=== PATIENT | female | born 2000 | race Caucasian/White ===

== ENCOUNTER 2025-05-16 02:02 | Inpatient (IN) | payer OTHER, SELFPAY ==
[2025-05-16] VITALS (132 sets, daily range): BP systolic 84–149; BP diastolic 38–88; PULSE 47–127; RESP 14–18; TEMP 36.6–36.8; O2SAT 84–100; BMI 26.9
--- OUTSIDE RECORDS SUMMARY | 2025-05-16 05:44 | XMS_ITS | Clinical Summary ---
Author Organization [facility] Address [address] [place] [address] Phone Care Team Providers Care Utility Operator Name Role Phone Provider, Unknown Primary Care Provider Unavaila ble Allergies No known active allergies Medications * This document contains information received from the source organization and may not represent a complete record from that organization. metoclopramide (REGLAN) 10 MG Tablet Take 1 Tablet by mouth 4 times daily as needed for Nausea - 1st line. 10 Tablet 10/16/2024 Active Active Problems Problem Noted Date Diagnosed Date Opiate withdrawal 10/14/2024 at early stage, unspecified trimester 10/14/2024 Comments Yes Social History Tobacco Use Types Packs/Day Years Used Date Smoking Tobacco: Never Tobacco Cessation:Counseling Given: Not Answered Alcohol Use Standard Drinks/Week Comments Never 0 (1 standard drink = 0.6 oz pur e alcohol) [facility] Utilities Answer Date Recorded In the past 12 months has [employer], gas, oil, or water [employer] threatened to shut off services in your home? Patient declined 10/14/2024 Social Connection and Isolation Panel Answer Date Recorded In a typical week, how many times do you talk on the phone with family, friends, or neighbors? Patient declined 10/14/2024 How often do you get togethe r with friends or relatives? Patient declined 10/14/2024 How often do you attend yarsanism or scientology serv ices? Patient declined 10/14/2024 Do you belong to any clubs o r organizations such as yarsanism groups, unions, fraternal or athletic groups, or school groups? Patient declined 10/14/2024 How often do you attend meet ings of the clubs or organizations you belong to? Patient declined 10/14/2024 Are you , , di vorced, , never , or living with a partner? Patient declined 10/14/2024 AUDIT-C Answer Date Recorded Q1: How often do you have a drink containing alc ohol? Patient declined 10/14/2024 Q2: How many drinks containi ng alcohol do you have on a typical day when you are drinking? Patient declined 10/14/2024 Q3: How often do you have si x or more drinks on one occasion? Patient declined 10/14/2024 Overall Financial Resource Strain (CARDIA) Answe r Date Recorded How hard is it for you to pa y for the very basics like food, housing, medical care, and heating? Patient declined 10/14/2024 [facility] - Occupational Stress Questionnaire Answer Date Recorded Do you feel stress - tense, restless, nervous, or anxious, or unable to sleep at night because your mind is troubled all the time - these days? Patient declined 10/14/2024 Exercise Vital Sign Answer Date Recorde d On average, how many days pe r week do you engage in moderate to strenuous exercise (like a brisk walk)? Patient declined On average, how many minutes do you engage in exercise at this level? Patient declined 10/14/2024 Hunger Vital Sign Answer Date Recorded Within the past 12 months, y ou worried that your food would run out before you got the money to buy more. Patient declined Within the past 12 months, t he food you bought just didn't last and you didn't have money to get more. Patient declined PRAPARE - Transportation Answer Date Re corded In the past 12 months, has l ack of transportation kept you from medical appointments or from getting medications? Patient declined 10/14/2024 In the past 12 months, has l ack of transportation kept you from meetings, work, or from getting things needed for daily living? Patient declined 10/14/2024 Housing Stability Vital Sign Answer Ruben e Recorded In the last 12 months, was t here a time when you were not able to pay the mortgage or rent on time? Patient declined 10/14/19 25 In the past 12 months, how m any times have you moved where you were living? 1 10/14/2024 At any time in the past 12 m [facility], were you homeless or living in a chcf (including now)? Patient declined 10/14/2024 Comments Yes Sex and Gender Information Value Date Recorded Sex Assigned at Not on file Legal Sex Female 11:11 PM BULLDOZER/LOADER/COMPACTOR/SCRAPER Gender Identity Not on file Sexual Orientation Not on file Last Filed Vital Signs Vital Sign Reading Time Taken Comments Blood Pressure 134/94 10/16/2024 2:00 AM BULLDOZER/LOADER/COMPACTOR/SCRAPER Pulse 83 10/16/2024 2:00 AM BULLDOZER/LOADER/COMPACTOR/SCRAPER Temperature 37.2 C (98.9 F) 10/16/2024 1:23 AM BULLDOZER/LOADER/COMPACTOR/SCRAPER Respiratory Rate 22 10/16/2024 1:23 AM BULLDOZER/LOADER/COMPACTOR/SCRAPER Oxygen Saturation 100% 10/16/2024 2:00 AM BULLDOZER/LOADER/COMPACTOR/SCRAPER Inhaled Oxygen Concentration - - Weight 95.3 kg (210 lb) 10/16/2024 1:23 AM BULLDOZER/LOADER/COMPACTOR/SCRAPER Height 182.9 cm (6') 10/16/2024 1:23 AM BULLDOZER/LOADER/COMPACTOR/SCRAPER Body Mass Index 28.48 10/16/2024 1:23 AM BULLDOZER/LOADER/COMPACTOR/SCRAPER Plan of Treatment Health Maintenance Due Date Last Done Comments Hepatitis C Virus (HCV) Screening 2002 Meningococcal B Immunization (2 of 2 - Bexsero SCDM 2-dose series) 07/09/2019 01/07/2019 Pap Smear 2023 SARS-COV-2 Immunization ( season) 2024 06/30/2021, 05/25/2021 Influenza Immunization (#1) 2025 11/0 10/2022, 06/27/2016, 08/19/2015 Respiratory Syncytial Virus (RSV) Immunization (Adult) (1 - 1-dose 75+ series) 2077 Hepatitis B Immunization Completed 003, 01/06/2003, 2002 Pneumococcal Immunization Combined Aged Out 06/19/2003, 03/28/2003, 01/06/2003 No longer eligible based on patient's age to complete this topic Hepatitis A Immunization Discontinued 06/08/2007, 06/1 01/2006 Measles Mumps Rubella (MMR) Immunization Discontinued 06/08/2007, 06/19/2003 Polio (IPV) Immunization Discontinued 007, 06/19/2003, 03/28/2003, Additional history exists Varicella Immunization Discontinued 06/08/2007, 2002 Human Papillomavirus (HPV) Immunization Completed 03/28/2016, 08/19/2015, 06/16/2015 Meningococcal Immunization (ACWY) Completed 01/07/2019, 06/16/2015 DTaP/Tdap/Td Immunization Discontinued 2022, 03/04/2014, 06/08/2007, Additional history exists TdaP Immunization Completed 09/01/2023, 03/04/2014 Rotavirus Immunization Aged Out No lo nger eligible based on patient's age to complete this topic Insurance [place]ICAID [place] Advance Directives * Full Code (Latest Code Status on File) Date Activated Date Inactivated Comments 10/14/2024 10:29 PM CPR-Full Beena tment: FULL ARREST: Attempt Resuscitation/CPR wit intubation and mechanical ventilation. PRE-ARREST: Use entire range of life support measures to stabilize the patient. Care Teams Utility Operator Relationship Specialty Start Date End Date Provider, Unknown UNKNOWN PCP - General 06/09/24
--- OUTSIDE RECORDS SUMMARY | 2025-05-16 05:44 | XMS_ITS | Clinical Summary ---
Author Organization [facility] Address [address] [place] [address] Care Team Providers Care Pharmaceutical Specialty Representative Name Role Phone Jana Navarro MD Primary Care Provider [phone] Allergies No known active allergies Medications ondansetron ODT (ZOFRAN-ODT) 4 mg disintegrating tablet Dissolve 1 tablet oral every 4 hours as needed for nausea or vomiting. 15 tablet 12/21/19 21 Active PNV #[id number] acid-dha 35 mg iron-5 mg iron-1 mg capsule Take 1 capsule by mouth daily Active benzocaine-menthoL (DERMOPLAST) 20-0.5 % aerosolIndications :Minor Skin Wound Pain Apply 1 Application (1 spray total) topically as needed for other (perianal area for pain) 1 g 1 10/06/19 24 Active ibuprofen (ADVIL,MOTRIN) 600 mg tabletIndications: Cramps Take 1 tablet (600 mg total) by mouth every 6 (six) hours as needed for pain 30 tablet 1 10/06/19 24 Active Active Problems Problem Noted Date Diagnosed Date with 38 completed weeks gestation 01/2024 Encounters Date Type Department Care Team Description 03/27/2025 8:23 PM CDT - 03/27/2025 11:32 PM CDT Emergency [facility] Emergency Department [address] [place] [id number] Spotting during in third trimester (Primary Dx) Discharge Disposition: Discharge to home or self care from Last 3 Months Immunizations Immunization Administration Dates Next Due Influenza, Unspecified 08/02/2023 Social History Tobacco Use Types Packs/Day Years Used Date Smoking Tobacco: Former Vaping 2 019 - 07/2023 Passive Smoke Exposure: Never Smokeless Tobacco: Never Tobacco Cessation:Counseling Given: Yes Alcohol Use Standard Drinks/Week Comments Not Currently 0 (1 standard drink = 0.6 oz pur e alcohol) [facility] Utilities Answer Date Recorded In the past 12 months has e [employer], [employer], oil, or water [employer] threatened to shut off services in your home? No 10/07/2023 Humiliation, Afraid, Rape, and Kick questionnair e Answer Date Recorded Within the last year, have y ou been afraid of your partner or ex-partner? No 10/07/2023 Within the last year, have y ou been humiliated or emotionally abused in other ways by your partner or ex-partner? No Within the last year, have y ou been kicked, hit, slapped, or otherwise physically hurt by your partner or ex-partner? No 10/07/2023 Within the last year, have y ou been raped or forced to have any kind of sexual activity by your partner or ex-partner? No 10/07/2023 Social Connection and Isolation Panel Answer Date Recorded In a typical week, how many times do you talk on the phone with family, friends, or neighbors? More than three times a week 10/07/2023 How often do you get togethe r with friends or relatives? More than three times a week 10/07/2023 How often do you attend [facility] or gnosticist services? 1 to 4 times per year 10/07/2023 Do you belong to any clubs o r organizations such as latter-day groups, unions, fraternal or athletic groups, or school groups? No 10/07/2023 How often do you attend meet ings of the clubs or organizations you belong to? Never 10/07/2023 Are you , , di vorced, , never , or living with a partner? Living with partner 10/07/2023 AUDIT-C Answer Date Recorded Q1: How often do you have a drink containing alcohol? Never 10/07/2023 Q2: How many drinks containi ng alcohol do you have on a typical day when you are drinking? Patient does not drink Q3: How often do you have si x or more drinks on one occasion? Never 10/07/2023 Overall Financial Resource Strain (CARDIA) Answe r Date Recorded How hard is it for you to pa y for the very basics like food, housing, medical care, and heating? Not hard at all 10/07/2023 PHQ-2 Answer Date Recorded PHQ-2 Total Score 1 10/07/2023 [facility] - Occupational Stress Questionnaire Answer Date Recorded Do you feel stress - tense, restless, nervous, or anxious, or unable to sleep at night because your mind is troubled all the time - these days? Only a little 10/07/2023 Exercise Vital Sign Answer Date Recorde d On average, how many days pe r week do you engage in moderate to strenuous exercise (like a brisk walk)? 7 days 10/07/2023 On average, how many minutes do you engage in exercise at this level? 30 min 10/07/2023 Hunger Vital Sign Answer Date Recorded Within the past 12 months, y ou worried that your food would run out before you got the money to buy more. Sometimes true Within the past 12 months, t he food you bought just didn't last and you didn't have money to get more. Never true 03/2024 PRAPARE - Transportation Answer Date Re corded In the past 12 months, has l ack of transportation kept you from medical appointments or from getting medications? No 03/2024 In the past 12 months, has l ack of transportation kept you from meetings, work, or from getting things needed for daily living? No 10/07/2023 Housing Stability Vital Sign Answer Ruben e Recorded In the last 12 months, was t here a time when you were not able to pay the mortgage or rent on time? No 10/07/2023 In the last 12 months, how many places have you lived? 1 10/07/2023 In the last 12 months, was t here a time when you did not have a steady place to sleep or slept in a half-way (including now)? No 10/07/2023 [place] Depression Scale Answer Date Recorded [place] Depression Scale Total 4 10/07/2023 The thought of harming myself has occurred to me . Never 10/07/2023 Personal Safety Answer Date Recorded Have you ever been in or are you currently in a harmful physical or emotional relationship or is someone making you feel afraid or unsafe? Denies 03/27/2025 Comments No Sex and Gender Information Value Date Recorded Sex Assigned at Not on file Legal Sex Female 9:11 PM CDT Gender Identity Not on file Sexual Orientation Not on file Obstetrics History Para Term AB IAB SAB Ectopic Multiple Livin g Live Births 2 1 1 1 1 0 1 1 Date Outcome GA Total Labor Labor/2nd/3rd Weight Sex Type Anes PTL Carin A1 A5 Name Clin 2017 SAB 2023 Term 38w 2d 0h 24m 0h 12m/0h 05m/0h 07m 2.562 kg (5 lb 10.4 oz) M Vagina l Epidur al N Livin g 8 9 Evangelista schaeffer, Jesus escobedo MD Complications:None Delivery Location:This [facility] ([facility] Last Filed Vital Signs Vital Sign Reading Time Taken Comments Blood Pressure 127/86 03/27/2025 9:00 PM CDT Pulse 92 03/27/2025 9:00 PM CDT Temperature 36.2 C (97.2 F) 03/27/2025 8:25 PM CDT Respiratory Rate 18 03/27/2025 8:25 PM CDT Oxygen Saturation 96% 03/27/2025 9:00 PM CDT Inhaled Oxygen Concentration - - Weight 82.6 kg (182 lb) 03/27/2025 8:59 PM CDT Height 182.9 cm (6') 03/27/2025 8:59 PM CDT Body Mass Index 24.68 03/27/2025 8:59 PM CDT Plan of Treatment Health Maintenance Due Date Last Done Comments Cervical Cancer Screening 2002 Hepatitis C Screening 2002 Meningococcal B Vaccine (2 o f 2 - Bexsero SCDM 2-dose series) 07/09/2019 01/07/2019 Regular Well Visit/Exam 18-64 2020 Chlamydia and Gonorrhea (GC/ CT) Screening 09/01/2021 09/01/2020 Covid-19 Vaccine (3 2023-2 5 season) 2024 06/30/2021, 05/25/2021 Depression Screening 10/07/2024 10/07/2023, 10/05/19 Influenza Vaccine (#1) 2025 3, 06/27/2016, 08/19/2015 DTaP/Tdap/Td Vaccine (8 - Td or Tdap) 09/01/2033 09/01/2023, 03/04/2014, 06/08/2007, Additional history exists Hepatitis B Screening Completed 06/19/2003 , 01/06/2003, 2002 Pneumococcal vaccine <65 Completed 003, 03/28/2003, 01/06/2003 Varicella Vaccines Completed 06/08/2007, 06/19/2003 HPV Vaccines Completed 03/28/2016, 08/02, 06/16/2015 Procedures Procedure Name Priority Date/Time Associated Diagnosis Comments N. GONORRHOEAE/C. TRACHOMATIS AMPLIFICATION STAT 09/01/2020 11:54 AM ENGINE REPAIRER PRODUCTION from Last 3 Months or Most Recently Relevant to Health Maintenance Results * (ABNORMAL) N. gonorrhoeae/C. trachomatis Amplification Urine (09/01/2020 11:54 AM ENGINE REPAIRER PRODUCTION) C. trachomatis Detected( A) Not detected PATRICIA VAZ ([place]ILLIAM) Comment:Testing performed by : [facility], [address] [place] [address]., [id number] N. gonorrhoeae Detected( A) Not detected PATRICIA VAZ (WILLIAM) Comment: Testing performed by the [facility]. This assay detects Chlamydia trachomatis and Neisseria gonorrhoeae by nucleic acid amplification testing (NAAT). This test is approved by the [place] Food and Drug Administration and the performance characteristics have been verified by the laboratory. The performance characteristics of this test have not been evaluated in women or individuals less than 16 years of age. Testing performed by: [facility], [address] [place] [address]., [id number] Urine (None) 09/01/2020 11:5 4 AM ENGINE REPAIRER PRODUCTION 09/01/2020 2:30 PM ENGINE REPAIRER PRODUCTION Linda Martínez NP LAB MICROBIOLOGY - GENERAL ORDERABLES Final Result [facility] ([place]) [facility] Department of [place] [phone] from Last 3 Months or Most Recently Relevant to Health Maintenance Insurance [facility] ANTH ACCESS [facility] Advance Directives For more information, please contact: [phone] * Full Code (Latest Code Status on File) Date Activated Date Inactivated Comments 10/06/2023 12:27 AM 10/07/2023 3:57 PM * Full Code Date Activated Date Inactivated Comments 10/05/2023 6:18 AM 10/06/2023 12:27 AM Full CPR in c ase of cardiopulmonary arrest Care Teams Pharmaceutical Specialty Representative Relationship Specialty Start Date End Date Jana Navarro MD [address] [place] [address] PCP - General 12/20/20
--- OUTSIDE RECORDS SUMMARY | 2025-05-16 05:44 | XMS_ITS | Patient Health Record ---
Author Organization [facility] Address [address] [place] [address] Care Team Providers Care Inspector Boiler Name Role Phone Joe Ayala Primary Care Provider Reason For Referral No Information Encounters Encounter Location Date Provider Diagnosis [address] [place] [address] 04/15/2025 Joe Ayala Plan Of Treatment No Information Insurance Providers Payer Name Payer Address Payer Phone Subscriber Number Group Number Insured Name Patient Relationship to Insured Coverage Start Date Coverage End Date [address] [id number] Self - patient is the insured 5
--- NOTE | 2025-05-16 05:50 | LDADM ---
This patient, Margaret Way, was admitted to Labor/Delivery/Recovery 106 on 05/16/25 at 02:02. Plans for labor, pain management and were discussed with patient. Patient/family oriented to hospital policies and general routines including ID bracelet, bed and alarms, visiting hours, pain management, procedures, bathroom and other care routines, personal items, smoking policy, room service/diet and guest tray routines, security routines, and visiting hours. Patient/Family are encouraged to report perceived risks to care and to ask questions if they do not understand what they are told or what they should do. See OBIX for further documentation.
[2025-05-16 06:00] LABS: Hematocrit 31.9 % (37.0-47.0); Hemoglobin 10.0 g/dL (12.0-15.0); Immature Granulocyte Percent A 0.7 % (0-0.5); Lymphocytes Absolute Auto 2.88 K/mm3 (0.9-3.2); Mean Corpuscular HGB Conc 31.3 g/dl (32-36); Mean Corpuscular Hemoglobin 24.8 pg (26-34); Mean Corpuscular Volume 79.2 fl (80-100); Nucleated Red Blood Cells Absolute Auto 0.000 K/mm3 (0.0-0.012); Nucleated Red Blood Cells Perc 0.0 % (0.0-0.2); Platelet Count Result 242 k/mm3 (150-375); Red Blood Count 4.03 M/mm3 (4.2-5.4); White Blood Count 11.7 K/mm3 (4.5-10.0)
[2025-05-16 06:02] LABS: Alanine Aminotransferase 13 U/L (6-35); Albumin Level 3.5 g/dL (3.5-5.1); Alkaline Phosphatase 157 U/L (38-126); Anion Gap 10 mmol/L (4-12); Aspartate Amino Transferase 22 U/L (14-36); Bilirubin,Total 0.3 mg/dL (0.2-1.3); Blood Urea Nitrogen 7 mg/dL (7-17); Calcium 8.9 mg/dL (8.4-10.2); Carbon Dioxide 19 mmol/L (22-30); Chloride 104 mmol/L (98-107); Estimated CRCL calculation 156 ml/min; Estimated Glomerular Filt Rate > 60; Glucose 96 mg/dL (65-110); Potassium 3.8 mmol/L (3.4-5.0); Sodium 133 mmol/L (137-145); Total Protein 7.1 g/dL (6.3-8.2)
--- NOTE | 2025-05-16 06:25 | P.PNAN_ITS ---
Anes - Eval Pre Procedure Procedure: Labor epidural Date/Time: 05/16/25 06:25 Surgeon: Justin Preop Diagnosis: Abdominal pain with contractions Pre Op Diagnosis: Leaking Patient Data Age: 24 Gender: F Height: 1.83 m Weight: 90 kg Last Vital Signs Pulse Ox 100 05/16/25 06:14 O2 Del Method Room Air 05/16/25 05:49 Allergies Allergy/AdvReac Type Severity Reaction Status Date / Time No Known Allergies Allergy Verified 05/16/25 05:59 Home Medications ?Medication ?Instructions ?Recorded ?Confirmed ?Type No Home Medications 05/16/25 05/16/25 History Laboratory Tests 05/16/25 02:58 WBC 11.7 H K/mm3 (4.5-10.0) RBC 4.03 L M/mm3 (4.2-5.4) Hgb 10.0 L g/dL (12.0-15.0) Hct 31.9 L % (37.0-47.0) MCV 79.2 L fl (80-100) MCH 24.8 L pg (26-34) MCHC 31.3 L g/dl (32-36) RDW 15.3 H % (11.5-14.5) Plt Count 242 k/mm3 (150-375) MPV 10.9 H fl (7.4-10.4) Immature Gran % (Auto) 0.7 H % (0-0.5) Neut % (Auto) 64.2 % (45.5-73.1) Lymph % (Auto) 24.5 % (18.3-44.2) Boyle % (Auto) 7.4 % (2.6-8.5) Eos % (Auto) 2.8 % (0-4.4) Baso % (Auto) 0.4 % (0.2-1.2) Lymph # (Auto) 2.88 K/mm3 (0.9-3.2) Boyle # (Auto) 0.9 H K/mm3 (0.1-0.6) Eos # (Auto) 0.3 K/mm3 (0-0.3) Baso # (Auto) 0.1 K/mm3 (0.0-0.1) Abs Immat Gran (auto) 0.08 H K/mm3 (0.00-0.031) Absolute Neuts (auto) 7.5 H K/mm3 (1.3-6.7) Absolute Nucleated RBC 0.000 K/mm3 (0.0-0.012) Nucleated RBC % 0.0 % (0.0-0.2) Sodium 133 L mmol/L (137-145) Potassium 3.8 mmol/L (3.4-5.0) Chloride 104 mmol/L (98-107) Carbon Dioxide 19 L mmol/L (22-30) Anion Gap 10 mmol/L (4-12) BUN 7 mg/dL (7-17) Creatinine 0.55 L mg/dL (0.7-1.0) Estim Creat Clear Calc 156 ml/min Estimated GFR > 60 (59 - ) Glucose 96 mg/dL (65-110) Calcium 8.9 mg/dL (8.4-10.2) Total Bilirubin 0.3 mg/dL (0.2-1.3) AST 22 U/L (14-36) ALT 13 U/L (6-35) Alkaline Phosphatase 157 H U/L (38-126) Total Protein 7.1 g/dL (6.3-8.2) Albumin 3.5 g/dL (3.5-5.1) Hep Bs Antibody Pending Hepatitis Be Antibody Cancelled HIV 1&2 Ab/P24 Ag 4thGn Pending Rubella IgG Antibody Pending Rubella IgM Antibody Cancelled Blood Type A Positive Antibody Screen Negative : gestational age HCG: positive Patient hx anesthesia problems: none Family hx anesthesia problems: none Results Review: All pre-operative results and documents have been reviewed as part of the pre-operative evaluation. [facility] Past Medical History Medical History Smoker Overweight (BMI 25.0-29.9) and not yet delivered Social History Social History Smoking status: Current every day smoker Tobacco type: e-cigarettes/vaping Lack of Transportation: No Lack of Food: Never True Current Housing: I Have Housing Concerned About Future Housing: No Difficulty Paying Gas/Electric Bills: No Difficulty Paying for Meds: No Currently Unemployed: No Education: High School Diploma/GED Difficulty w/ Childcare or Family Care: No Spiritual care concerns: No Exam Day of Procedure 05/16/25 06:25 Patient weight: overweight
[2025-05-16] MEDS: OXYTOCIN 30 UNITS/NS 500 ML 30 UNITS/500 ML BAG IV CONT (06:47)
[2025-05-16] MEDS: LACTATED RINGERS 1,000 ML 125 ML IV CONT ×2 (06:47→09:52)
[2025-05-16 07:17] LABS: Hepatitis B Surface Anti Res Negative
--- NOTE | 2025-05-16 07:57 | P.HP_ITS ---
H&P: HPI History of Present Illness Date/Time: 05/16/25 07:57 Chief Complaint: SROM at 2300 Narrative: Patient is a 24 year old at 38 weeks gestation who presents after SROM of clear fluid at 2300 last night. Her has been complicated by no care due to issues with insurance coverage. She is dated by an 11 week US with [facility] however has not had any other care. She denies bleeding, strong contractions, or decreased movement. She reports a previous that was complicated by possible shoulder dystocia. Otherwise, uncomplicated medical history. Review of Systems Review of Systems: All systems reviewed & are unremarkable except as noted in HPI and below PMFSH Past Medical History Medical History Smoker Overweight (BMI 25.0-29.9) and not yet delivered Social History Social History Smoking status: Current every day smoker Tobacco type: e-cigarettes/vaping Lack of Transportation: No Lack of Food: Never True Current Housing: I Have Housing Concerned About Future Housing: No Difficulty Paying Gas/Electric Bills: No Difficulty Paying for Meds: No Currently Unemployed: No Education: High School Diploma/GED Difficulty w/ Childcare or Family Care: No Spiritual care concerns: No Meds Home Medications and Allergies Home Medications ?Medication ?Instructions ?Recorded ?Confirmed ?Type No Home Medications 05/16/25 05/16/25 History Allergies Allergy/AdvReac Type Severity Reaction Status Date / Time No Known Allergies Allergy Verified 05/16/25 05:59 Vital Signs Vital Signs - 24 hr 05/16/25 05:44 05/16/25 05:49 05/16/25 05:49 Temperature Pulse Rate Blood Pressure Pulse Oximetry 99 100 Oxygen Delivery Room Air 05/16/25 05:54 05/16/25 05:59 05/16/25 06:04 Temperature Pulse Rate Blood Pressure Pulse Oximetry 99 100 99 Oxygen Delivery 05/16/25 06:09 05/16/25 06:14 05/16/25 06:30 Temperature 97.9 F Pulse Rate Blood Pressure Pulse Oximetry 99 100 Oxygen Delivery 05/16/25 06:46 05/16/25 07:00 05/16/25 07:15 Temperature 97.9 F Pulse Rate 55 L 56 L 54 L Blood Pressure 98/63 L 97/54 L 94/50 L Pulse Oximetry Oxygen Delivery 05/16/25 07:30 05/16/25 07:45 Temperature Pulse Rate 62 60 Blood Pressure 89/42 L 90/48 L Pulse Oximetry Oxygen Delivery Exam Const: General: comfortable and no acute distress Eyes: General: appearance normal, both eyes and all related structures Resp: Effort & Inspection: normal respiratory effort Cardio: Rate: regular rate Extrem: General: normal to inspection Psych: Mental Status: mental status grossly normal H&P: Results Labs Labs: Short CBC 05/16/25 Range/Units 02:58 WBC 11.7 H (4.5-10.0) K/mm3 Hgb 10.0 L (12.0-15.0) g/dL Hct 31.9 L (37.0-47.0) % Plt Count 242 (150-375) k/mm3 BMP 05/16/25 02:58 Sodium 133 L Potassium 3.8 Chloride 104 Carbon Dioxide 19 L BUN 7 Creatinine 0.55 L Glucose 96 Calcium 8.9 Liver Function 05/16/25 Range/Units 02:58 Total Bilirubin 0.3 (0.2-1.3) mg/dL AST 22 (14-36) U/L ALT 13 (6-35) U/L Alkaline Phosphatase 157 H (38-126) U/L Albumin 3.5 (3.5-5.1) g/dL Assessment and Plan Assessment and plan (1) Rupture, membranes, premature: Qualifiers: PROM onset of labor timing: unspecified duration between rupture of membranes and onset of labor PROM gestational age: full term Qualified Code(s): O42.92 - Full-term premature rupture of membranes, unspecified as to length of time between rupture and onset of labor Code(s): O42.90 - Premature rupture of membranes, unspecified as to length of time between rupture and onset of labor, unspecified weeks of gestation Status: Acute Assessment and Plan: -SROM at 2300 of clear/yellow fluid - SVE 4cm on admission - pitocin per protocol - FHR category I (2) No care in current : Code(s): O09.30 - Supervision of with insufficient care, unspecified trimester Status: Acute Assessment and Plan: - due to insurance issues per patient - dated by 11 week US (3) Hx of shoulder dystocia in prior , currently : Code(s): O09.299 - Supervision of with other poor reproductive or obstetric history, unspecified trimester Status: Acute Assessment and Plan: - unclear duration
[2025-05-16] MEDS: AMPICILLIN SODIUM 2 GM in SODIUM CHLORIDE 0.9% IV 100 ML 200 ML IVPB (09:14)
[2025-05-16] MEDS: ACETAMINOPHEN 500 MG TABLET 1000 MG PO (12:10)
[2025-05-16 13:10] LABS: Cannabinoid Screen Urine Negative (Negative)
--- NOTE | 2025-05-16 13:10 | PM.OBPRVD ---
OB - Vaginal Delivery Note Procedure Delivery date: 05/16/25 Events: No Care Delivery augmentation: Pitocin Delivery monitor: External FHT and External Uterine Route of delivery: Episiotomy description: None Laceration Description: Perineal - 1st Degree (hemostatic) Specimen: No Quantitative Blood Loss (ml): 100 Anesthesia type: Epidural Disposition: Floor Complications: No immediate complications Narrative: See H&P and notes for details on patient's admission and labor. She progressed to complete cervical dilation and at the appropriate time began pushing. With adequate expulsive efforts by the mother, the baby's head was delivered without difficulty. Nuchal cord was present x1 and was easily reduced. The baby's right shoulder was anterior and delivered under the pubic symphysis without difficulty. The posterior shoulder and the rest of the baby delivered without difficulty. The umbilical cord was doubly clamped and cut after 60 seconds of delayed cord clamping. Care of the infant was then assumed by the nursing staff. Jermyn Baby Date of : 05/16/25 Gestational Age by Date: 38 Infant gender: Female Weight (pounds): 5 Weight (ounces): 11 presentation: vertex position: Left Occiput Anterior Placenta delivery description: Expressed Cord Vessel Description: 3 Vessels, Nuchal Cord, Reduced and Delayed Cord Clamping
[2025-05-16] MEDS: OXYTOCIN 30 UNITS/NS 500 ML 30 UNITS/500 ML BAG 125 UNITS IV CONT (13:33)
[2025-05-16] MEDS: BENZOCAINE 20% AER SPR (*SP) 56 GM CAN 1 SPRAY TOPICAL (15:31)
[2025-05-16] MEDS: WITCH HAZEL 40 PADS 1 PAD TOPICAL (15:31)
[2025-05-16 15:44] LABS: Syphilis IgG/IgM Antibody Non-Reactive (Nonreactive)
[2025-05-16 15:58] LABS: HIV 1/2 Ab P24 Ag Result Negative (Negative)
--- NOTE | 2025-05-16 17:24 | OBPPTRN ---
1613-Patient transferred to post room #287 via wheelchair. Support person present. Oriented to unit, room, information board, rooming in, admission packet and security measures. Patient verbalizes understanding.
--- NOTE | 2025-05-16 21:10 | PC.NURSE ---
1930- Pt requesting infant to be taken to nursery so that she can sleep, requests no interruptions until 2199.
[2025-05-17] MEDS: ACETAMINOPHEN 325 MG TABLET 650 MG PO ×2 (01:21→11:12)
[2025-05-17] MEDS: IBUPROFEN 600 MG TABLET PO ×2 (01:22→11:13)
[2025-05-17 05:56] LABS: Hematocrit 32.1 % (37.0-47.0); Hemoglobin 10.0 g/dL (12.0-15.0)
[2025-05-17 08:24] VITALS: BP 116/74; PULSE 68; RESP 18; TEMP 37.1; O2SAT 99
--- NOTE | 2025-05-17 09:57 | P.PNOB_ITS ---
OB - PN: Subj Subjective Date/time seen: 05/17/25 09:57 Interval history: PPD#1 s/p complicated by no care and maternal suboxone use Doing well, pain controlled Voiding without issue Tolerating general diet Baby transferred to NICU due to withdrawal symptoms Patient doing well on zoloft, no side effects Patient desires discharge today OB - PN: Obj Data Labs 05/17/25 04:43 05/16/25 02:58 Labs: Laboratory Results - last 24 hr 05/16/25 05/16/25 05/17/25 02:58 12:17 04:43 Hgb 10.0 L Hct 32.1 L Urine Opiates Screen Negative Urine Methadone Screen Negative Ur Barbiturates Screen Negative Ur Phencyclidine Scrn Negative Ur Amphetamine Screen Negative U Benzodiazepines Scrn Negative Urine Cocaine Screen Negative U Cannabinoids Screen Negative Syphilis IgG/IgM Ab Non-reactive HIV 1&2 Ab/P24 Ag 4thGn Negative OB - PN A/P Assessment and Plan (1) No care in current : Code(s): O09.30 - Supervision of with insufficient care, unspecified trimester Status: Acute (2) (spontaneous vaginal delivery): Code(s): O80 - Encounter for full-term uncomplicated delivery Status: Acute (3) Opioid dependence: Code(s): F11.20 - Opioid dependence, uncomplicated Status: Acute Assessment and Plan: - on suboxone - doing well with counseling (4) depression: Code(s): F53.0 - depression Status: Acute Assessment and Plan: - started zoloft 50mg yesterday - no side effects - f/u in office in 1 week Plan day: 1 Plan: routine care and discharge home Time Spent With Patient Time: Total time spent is greater than 50% in coordination of care (as documented) at patient's floor/unit and/or counseling patient: Review of Systems 2 Review of Systems: All systems reviewed & are unremarkable except as noted in HPI and below Exam 2 Const: General: comfortable and no acute distress O rientation/consciousness: patient oriented x3 Resp: Effort & Inspection: normal respiratory effort
--- NOTE | 2025-05-17 10:07 | PM.OBDSVD ---
DS: Admitting Diagnosis Discharge Date 05/17/25 Admitting Diagnosis PROM, no care, hx of opioid dependence on suboxone DS: Discharge Diagnosis Discharge Diagnosis (1) depression: Code(s): F53.0 - depression Status: Acute (2) Opioid dependence: Code(s): F11.20 - Opioid dependence, uncomplicated Status: Acute (3) (spontaneous vaginal delivery): Code(s): O80 - Encounter for full-term uncomplicated delivery Status: Acute (4) No care in current : Code(s): O09.30 - Supervision of with insufficient care, unspecified trimester Status: Acute OB - DS: Summary OB Procedures : None OB Procedures Intrapartum: Spontaneous Vag Delivery OB Procedures: : None Peripartum Data Laceration Description: Perineal - 1st Degree (hemostatic) Episiotomy description: None Time Spent with Patient Time attestation: Total time spent providing and/or coordinating discharge services: DS: Data Data Completed and Pending Pending studies at discharge: Pending at discharge 05/16/25 15:32 Surgical [PTH] Routine Labs on day of discharge: Labs from last 24 hours 05/17/25 05/16/25 05/16/25 04:43 12:17 02:58 Hgb 10.0 L Hct 32.1 L Urine Opiates Screen Negative Urine Methadone Screen Negative Ur Barbiturates Screen Negative Ur Phencyclidine Scrn Negative Ur Amphetamine Screen Negative U Benzodiazepines Scrn Negative Urine Cocaine Screen Negative U Cannabinoids Screen Negative Syphilis IgG/IgM Ab Non-reactive HIV 1&2 Ab/P24 Ag 4thGn Negative Discharge Plan Discharge Attending physician on discharge: Pedro Anderson Discharging Clinician: Pedro Anderson Patient Disposition: Home Activity: may shower, as tolerated and pelvic rest Diet: as tolerated Patient Instructions: Antibiotic Form Patient Language: Chinese Stand Alone Forms: General Discharge Information Follow-up/Referrals: Pedro Anderson MD [Physician] - 1 Week (mood check) Discharge Medications: New ibuprofen 600 mg Tablet 600 mg PO Q6H PRN (Reason: Cramping) Qty: 30 0RF sertraline [Zoloft] 50 mg Tablet 50 mg PO QAM Qty: 60 1RF Continued No Home Medications Date of admission: 05/16/25 02:02 Primary Care Provider: PHYSICIAN,PHYSICAL SCIENCE TECHNICIAN Admitting Provider: Pedro Anderson Attending physician on admission: Pedro Anderson Condition: Stable
[2025-05-17] MEDS: SERTRALINE HCL 50 MG TABLET PO (11:14)
--- NOTE | 2025-05-17 15:18 | PCCCNOTE ---
Care Coordination. Patient referred to CC for baby UDS positive for opiates, baby having severe withdrawals, mother having 1 prental visit, and unsure if she has custody of her 18mo. year old. Umb cord testing pending. Baby being transferred to higher level of care at [facility] for baby screaming uncontrolled, jittery, throwing up food, sneezing, and dropping her sats. Attempted to meet with pt., but transport team here talking with mother. Call placed to [facility] hotline and spoke with Chiquis Gonsalez who took a report Intake ID#[id number]. Per RN, mother or records indicate all of the following: pt. reports having used marijuana that she didn't know was laced with fentanyl at one point. Mother also reported following at a [facility] rehab clinice in [facility], but hasn't had it for at least a few days. Pt. had 11 week US and 21 week OB judi as her only care. At the 01/15 (21week judi) with Dr. Jorje Veliz, pt. had UDS positive for opiates, fentanyl, and cannibinoids per records from [facility] in chart. Received call from [facility] ship washer: Aylin [phone]. She made contact with mother and they plan to meet at [facility] later. RN added pt.'s [facility] address to her chart. Mother plans to DC today as well.
--- NOTE | 2025-05-23 14:58 | PCCCNOTE ---
05/23/25 Received call from [facility] with DCFS investigation. Faxed positive [facility] drug screen results to her.
== END 2025-05-17 12:57 | disposition home or self-care (01) | DRG 560 ==
LOC: ANHLDR 05:42 → ANHOB2 16:14
PROVIDERS: Admitting Provider Obstetrics & Gynecology; Visit Provider Obstetrics & Gynecology
DX: O42.02 Full-term premature rupture of membranes, onset of labor within 24 hours of rupture (principal); Z37.0 Single live birth; O99.324 Drug use complicating childbirth; Z3A.38 38 weeks gestation of pregnancy; O70.0 First degree perineal laceration during delivery; O69.81X0 Labor and delivery complicated by cord around neck, without compression, not applicable or unspecified; F11.20 Opioid dependence, uncomplicated; O99.345 Other mental disorders complicating the puerperium; F53.0 Postpartum depression; O99.892 Other specified diseases and conditions complicating childbirth; Z87.59 Personal history of other complications of pregnancy, childbirth and the puerperium
CPT/HCPCS: 36415; 80053; 80307; 85014; 85018; 85025; 86593; 86703; 86706; 86762; 86850; 86900; 86901; A9270; G0432; J0290; J2590; J2795; J7120

== ENCOUNTER 2025-07-08 18:43 | Emergency (ER) | payer OTHER, SELFPAY ==
--- NOTE | ~2025-07-08 | CT_ITS ---
CT HEAD NON-CONTRAST Clinical History: AMS Comparison: None Technique: Unenhanced axial images skull base to vertex Coronal, sagittal reformats CT images acquired with automatic exposure control for dose reduction DLP: 681 mGy-cm Findings: Sulci, ventricles: Unremarkable. No intracerebral hemorrhage. No evidence acute territorial infarct. No mass effect, midline shift. Bony calvarium intact. Visualized paranasal sinuses: Mild maxillary disease. Mastoid air cells: Clear. IMPRESSION: 1. No acute intracranial findings. Reviewed, dictated and finalized at location R.
--- NOTE | ~2025-07-08 | CT_ITS ---
EXAMINATION: CTA chest PE abdomen pel DATE: 07/08/2025 20:47 INDICATION: Abdominal pain, fever, tachycardia and elevated troponins TECHNIQUE: Computed tomography (CT) pulmonary angiogram of the chest was performed with 100 mL Omnipaque-350 intravenous contrast. Additional 3D reconstructions utilizing coronal maximum intensity projection (MIP) were performed. CT of the abdomen and pelvis was performed with intravenous contrast utilizing the same contrast bolus following a short delay. Automated exposure control and iterative reconstruction technique were employed. The dose-length product was 1684.65 mGy-cm. COMPARISON: None FINDINGS: Chest: No pulmonary embolism. No pneumonia, pulmonary edema or pleural effusion. Heart size is normal. No pericardial effusion. Thoracic aorta is normal in caliber with no dissection. No pathologically enlarged thoracic lymphadenopathy. Bones are unremarkable. Abdomen/pelvis: Liver, gallbladder, spleen, pancreas, bilateral adrenal glands and left kidney are normal. There is geographic regions of decreased parenchymal enhancement throughout the right kidney with minimal right perinephric stranding suspicious for pyelonephritis. Bladder is normal. Fluid throughout the colon consistent with nonspecific diarrhea. Small bowel and appendix are normal. Uterus and bilateral adnexa are unremarkable. No free intraperitoneal gas or fluid. No pathologically enlarged abdominal or pelvic lymphadenopathy. Bones are unremarkable. IMPRESSION: 1. Geographic regions of decreased parenchymal enhancement throughout the right kidney suspicious for pyelonephritis. Correlate with urinalysis. 2. No pulmonary embolism or other acute cardiopulmonary disease. Reviewed, dictated and finalized at location A.
--- NOTE | ~2025-07-08 | XR_ITS ---
EXAMINATION: XR chest 1V portable DATE: 07/08/2025 20:01 INDICATION: Fever and syncope TECHNIQUE: frontal view of the chest was obtained. COMPARISON: Chest radiograph dated 05/23/2012 FINDINGS: The lungs remain clear with no focal airspace opacities, pulmonary edema, pleural effusion or pneumothorax. The cardiomediastinal silhouette is normal. Visualized bones and soft tissues are unremarkable. IMPRESSION: 1. Normal chest radiograph. Reviewed, dictated and finalized at location A. IMPRESSION: 1. Normal chest radiograph.
--- NOTE | 2025-07-08 18:47 | ECG_ITS ---
Test Date: 2025-07-08 19:10:40 Measurements Intervals [place] Rate: 128 P: 31 MA: 128 QRS: 47 QRSD: 79 T: -15 QT: 334 QTc: 489 Interpretive Statements SINUS TACHYCARDIA MINIMAL Q WAVES- DIFFUSE LEADS BORDERLINE ST-T WAVE ABNORMALITY- ANT/INF LEADS ABNORMAL ECG No previous ECG available for comparison Electronically Signed On 07-09-2025 06:13:58 CDT by Jose Montes D.O.
[2025-07-08 18:51] VITALS: BP 132/86; PULSE 131; RESP 18; TEMP 38.4; O2SAT 100
--- NOTE | 2025-07-08 19:10 | PC.NURSE ---
Pt was covered in feces upon arrival to [facility]. EMS said that she was in the same spot tonight that she was in this morning when she deined care.
--- NOTE | 2025-07-08 19:31 | PC.NURSE ---
Labs, EKG, and urine sample were delayed d/t pts condition when she arrived in the ED.
--- NOTE | 2025-07-08 19:40 | PC.NURSE ---
Pt. is very dehydrated. Dry mucus membranes. Attempted to straight cath pt. Unsuccessful. Transferred pt. to commode with standby assist x2. Pt. unable to urinate on bedside commode. Unable to collect urine sample at this time. Pt. is a difficult IV stick. Unable to obtain blood cultures at this time. LAKESHA Zavaleta aware of the delay of the above at this time.
--- OUTSIDE RECORDS SUMMARY | 2025-07-08 19:51 | XMS_ITS | Patient Health Record ---
Author Organization [facility] Address [address] [place] [address] Care Team Providers Care Insulation Blanket Maker Name Role Phone Joe Ayala Primary Care Provider Dagoebrto Dorman Unavailable [phone] Allergies No Known Allergies Results Component Value Reference Range Notes Test, Urine Reviewed date:05/29/2025 10:52:38 AM Interpretation: Performing Lab: Notes/Report: Test, Urine neg Negative - Negative 14 Panel Urine Drug Screen Reviewed date:05/29/2025 10:04:31 AM Interpretation: Performing Lab: Notes/Report: THC neg ML neg MOP (OPI) pos AMP neg MET neg BAR neg BZO eg MDMA neg MTD neg OXY neg PCP neg BUP neg TCA neg FTY pos Reason For Referral No Information Medications Medication SIG (Take, Route, Frequency, Duration) Notes Start Date End Date Status Ibuprofen 600 MG Oral; Duration: 8 Days Active traZODone HCl 50 MG 1 tablet at bedtime as needed Orally Once a day; Duration: 30 day(s) 05/29/2025 Active Buprenorphine HCl-Naloxone HCl 4-1 MG 1 film under the tongue and allow to dissolve Sublingual up to 4 times a day; Duration: 7 days 05/29/2025 Active Sertraline HCl 100 MG Oral; Duration: 30 Days Active Social History Tobacco Use: Social History Observation Description Date Details (start date - stop date) Never Smoker NA - NA Sex Assigned At : Social History Observation Description Sex Assigned At Female Tobacco Control (Standard) Question Answer Notes Tobacco use: Nonsmoker Problems Problem Type SNOMED Code ICD Code Onset Dates Problem Status W/U Status Risk Notes Problem Insomnia (043837729) Insomnia (G47.00) Active confirmed Problem Overweight (438003613) Over weight (E66.3) Active confirmed Problem Overweight (748712645) Overweight (BMI 25.0-29.9) (E66.3) Active confirmed Problem Opioid use disorder (6453539284) Opioid use disorder (F11.99) Active confirmed Vital Signs Heart Rate 87 /min 05/29/2025 Respiratory Rate 16 /min 05/29/2025 Blood pressure diastolic 78 mm Hg 05/29/2025 Oximetry 98 % 05/29/2025 Height 72in in 05/29/2025 Blood pressure systolic 120 mm Hg 05/29/2025 Weight 192lbs lbs 05/29/2025 BMI 26.04 kg/m2 05/29/2025 Encounters Encounter Location Date Provider Diagnosis [facility] [place] [address] 05/29/2025 Gracyyumiko Dalalsofya Opioid use disorder F11.99 ; Insomnia G47.00 ; Overweight (BMI 25.0-29.9) E66.3 and Over weight E66.3 [facility] [place] [address] 04/15/2025 Joe Ayala Assessments Encounter Date Diagnosis (ICD Code) Assessment Notes Treatment Notes Treatment Clinical Notes Section Notes 05/29/2025 Insomnia (ICD-10 - G47.00) 05/29/2025 Opioid use disorder (ICD-10 - F11.99) 05/29/2025 Overweight (BMI 25.0-29.9) (ICD-10 - E66.3) 05/29/2025 Over weight (ICD-10 - E66.3) 05/29/2025 Other Discussed medication side effects, adverse effects, risks, benefits, as well as interactions. Encouraged non-use of opioids. Has naloxone. Recommended participation in recovery groups and/or counseling services. May contact office with questions or concerns. Patient may self-administer their own medications or may self-administer their own oral medications per [place] Protocol. Plan Of Treatment No Information Insurance Providers Payer Name Payer Address Payer Phone Subscriber Number Group Number Insured Name Patient Relationship to Insured Coverage Start Date Coverage End Date [address] [id number] Self - patient is the insured 04/25/202 5 Medical (General) History Hospitalization History Reason Date(Month/Year) [facility] 05/2025
--- OUTSIDE RECORDS SUMMARY | 2025-07-08 19:51 | XMS_ITS | Clinical Summary ---
Author Organization [facility] Address [address] [place] [address] Care Team Providers Care Architecture Analyst Name Role Phone Jana Navarro MD Primary Care Provider [phone] Allergies No known active allergies Medications ondansetron ODT (ZOFRAN-ODT) 4 mg disintegrating tablet Dissolve 1 tablet oral every 4 hours as needed for nausea or vomiting. 15 tablet 12/21/19 21 Active PNV #[id number] acid-dha 35 mg iron-5 mg iron-1 mg [...] Date with 38 completed weeks gestation 01/2024 Immunizations Immunization Administration Dates Next Due Influenza, Unspecified 08/02/2023 Social History Tobacco Use Types Packs/Day Years Used Date Smoking Tobacco: Former Vaping 2 - 07/2023 Passive Smoke Exposure: Never Smokeless Tobacco: Never Tobacco Cessation:Counseling Given: Yes Alcohol Use Standard Drinks/Week Comments Not Currently 0 (1 standard drink = 0.6 oz pur e alcohol) [facility] Utilities Answer Date Recorded In the past 12 months has th e electric, gas, oil, or water company threatened to shut off services in your [...] week 10/07/2023 How often do you attend [facility] or hindu services? 1 to 4 times per year 10/07/2023 Do you belong to any clubs o r organizations such as shinto groups, unions, fraternal or athletic groups, or [...] Date Recorded PHQ-2 Total Score 1 10/07/2023 [facility] - Occupational Stress Questionnaire Answer Date Recorded [...] place to sleep or slept in a residential (including now)? No 10/07/2023 [place] Depression Scale Answer Date Recorded [place] Depression Scale Total 4 10/07/2023 The thought [...] al N Livin g 8 9 Evangelista Jesus Clark MD Complications:None Delivery Location:This [facility] Last Filed Vital Signs [...] and Gonorrhea (GC/ CT) Screening 09/01/2021 09/01/2020 Depression Screening 10/07/2024 10/07/2023, 10/05/19 24 Covid-19 Vaccine (2024-2 6 season) 2025 06/30/2021, 05/25/2021 Influenza Vaccine (#1) 2025 3, 06/27/2016, 08/19/2015 DTaP/Tdap/Td Vaccine (8 - Td or Tdap) 09/01/2033 09/01/2023, 03/04/2014, 06/08/2007, Additional history exists Hepatitis B Screening Completed 06/19/2003 , 01/06/2003, 2002 Pneumococcal vaccine <65 Completed 003, 03/28/2003, 01/06/2003 Varicella Vaccines Completed 06/08/2007, 06/19/2003 HPV Vaccines Completed 03/28/2016, 08/02, 06/16/2015 Procedures Procedure Name Priority Date/Time Associated Diagnosis Comments N. GONORRHOEAE/C. TRACHOMATIS AMPLIFICATION STAT 09/01/2020 11:54 AM CURRICULUM ASSISTANT from Last 3 Months or Most Recently Relevant to Health Maintenance Results * (ABNORMAL) N. gonorrhoeae/C. trachomatis Amplification Urine (09/01/2020 11:54 AM CURRICULUM ASSISTANT) C. trachomatis Detected( A) Not detected PATRICIA VAZ (WILLIAM) Comment:Testing performed by : [facility], [address] [place] [address]., [id number] N. gonorrhoeae Detected( A) Not detected PATRICIA VAZ (WILLIAM) Comment: Testing performed by the [facility]. This assay detects Chlamydia trachomatis and Neisseria gonorrhoeae by nucleic acid amplification testing (NAAT). This test is approved by the [place] Food and Drug Administration and the performance characteristics have been verified by the laboratory. The performance characteristics of this test have not been evaluated in women or individuals less than 16 years of age. Testing performed by: [facility], [address] [place] [address]., [id number] Urine (None) 09/01/2020 11:5 4 AM CURRICULUM ASSISTANT 09/01/2020 2:30 PM CURRICULUM ASSISTANT us Linda Martínez NP LAB MICROBIOLOGY - GENERAL ORDERABLES Final Result PATRICIA VAZ (WILLIAM) [facility] Department of Laboratories [place], [place] [id number] from Last 3 Months or Most Recently Relevant to Health Maintenance Insurance [facility] ANTH ACCESS [facility] Advance Directives For more information, please contact: [phone] * Full Code (Latest Code Status on File) Date Activated Date Inactivated Comments 10/06/2023 12:27 AM 10/07/2023 3:57 PM * Full Code Date Activated Date Inactivated Comments 10/05/2023 6:18 AM 10/06/2023 12:27 AM Full CPR in c ase of cardiopulmonary arrest Care Teams Architecture Analyst Relationship Specialty Start Date End Date Jana Navarro MD [address] [place] [address] [place] [id number] PCP - General 12/20/20
--- OUTSIDE RECORDS SUMMARY | 2025-07-08 19:51 | XMS_ITS | Data Portability ---
Author Organization [facility] [place] Address [address] [place] [address] Assessment No assessment recorded. Plan of Treatment Reminders Order Date Submit Date Provider Last Modified By Organization Details Last Modified Time Details Appointments MED CHECK 2024 11:30A M NAKUL MUNOZ MD Not available Not available Not available Lab None recorded. Referral None recorded. Procedures None recorded. Surgeries None recorded. Imaging None recorded. Medication Orders sertralin e 100 mg tablet 2024 025 [id number], [address], [place], [place], [id number], 05/27/2025 17:10:21 Patient TargetsNo targets recorded. Patient InstructionsNo instructions recorded. Reason for Referral None Reported. Medical Equipment None Reported. Allergies No known drug allergies Medications Name Sig Start Date Stop Date Status Note LastModified by Organization Details LastModified Time sertraline 100 mg tablet TAKE 1 TABLET BY MOUTH EVERY DAY active Not Available Not Available No t Available ibuprofen 600 mg tablet TAKE 1 TABLET BY MOUTH EVERY 6 HOURS NEEDED FOR CRAMPING active Not Available Not Available No t Available sertraline 50 mg tablet TAKE 1 TABLET BY MOUTH EVERY MORNING active Not Available Not Available No t Available Vitals Date Recorded Body height Body mass index (BMI) Body weight Systolic And Diastolic Provider Name and Address Organization Details Last Updated DateTime 05/27/2025 182.88 cm 26.2 kg/m2 62733.33 g 110/77 mm[Hg] Chiquis Faye [facility] 05/27/2025 16:29:06 Social History Question Answer Notes LastModified by Organizat ion Details LastModified Time Tobacco Smoking Status Former Smoker Chiquis edge [facility] 05/27/2025 16:30:57 Are You Blind Or Do You Have Difficulty Seeing? No [email or web address] Information n ot available 05/27/2025 In The 14 Days Before Symptom Onset, Have You Had Close Contact With A Laboratory-confirm ed COVID-19 While That Case Was Ill? No [email or web address] Information n ot available 05/27/2025 In The 14 Days Before Symptom Onset, Have You Had Close Contact With A Person Who Is Under Investigation For COVID-19 While That Person Was Ill? No [email or web address] Information not available 05/27/2025 Have You Been To An Area Known To Be High Risk For COVID-19? No Information not available 05/27/2025 Are You Deaf Or Do You Have Serious Difficulty Hearing? No Information not available 05/27/2025 Are There Any Guns Present In Your Home? No Information not available 05/27/2025 Do You Use Protection During Sex? No [email or web address] Information not available 05/27/2025 Are You Sexually Active? Yes [email or web address] Information not available 05/27/2025 Do You Have Smoke And Carbon Monoxide Detectors In Your Home? Yes [email or web address] Information not available 05/27/2025 Do You Use Sunscreen Routinely? Yes Information not available 05/27/2025 Do You Have Difficulty Walking Or Climbing Stairs? No [email or web address] Information not available 05/27/2025 Sex: Unknown Functional Status Question Answer Note LastModified by Organizat ion Details LastModified Time Are you able to walk independently without assistance or assistive devices? YESWOREST [email or web address] Information not available 05/27/2025 Are you able to care for yourself independently? Yes Information not available 05/27/2025 Do you have difficulty dressing, bathing, grooming, or toileting? No [email or web address] Information not available 05/27/2025 Mental Status None recorded. Family History Nothing Reported. Medical History No medical history recorded. Gynecological History Statement/Question Response Current Control Method BCPs Obstetrics History GPAL:G 0 P 0 0 0 0 Past Encounters Encounter ID Performer Location Encounter Start Date Encounter Closed Date Diagnosis/Indication Diagnosis SNOMED-CT Code Diagnosis ICD10 Code Diagnosis IMO Codes Diagnosis Note [id number] NAKUL MUNOZ MD [facility] [address] [address] 05/27/2025 16:08:25 05/27/2025 17:12:22 state 46938600 Z39.2 004069 - s/p 05/16- healing well- POPs given today, discussed OCPs after 6 weeks depression 58 914028 F53.0 95282 - started Zoloft in hospital - EPDS 19 today; no SI/HI- would like to increase to 75mg, rx sent- mood check/post appt in 4 weeks Health Concerns Section Related Observation LastModified by Organization Detai ls LastModified Time None Recorded Concern Status LastModified by Organization Details LastModified Time None Recorded Advance Directives Directive None Recorded Payers Insurance Date Sequence Insurance Name Policy Number Policy Meyers Covered Member ID Meyers Member ID Guarantor Name 07/07/2025 1 [facility] (MEDICAID HMO) [id number] Notes Date Note Type Note Provider Name and Address Organization Details Recorded Time 05/27/2025 text/html s/p 05/16. She presents today for her mood check. Her course has been unremarkable. She has minimal lochia, denies pain, fever or any other concerning symptoms. Her mood is improving however still having depressive symptoms. No side effects from zoloft. Baby has been released from NICU and is in her brother's care. NAKUL MUNOZ MD [address], [place], [address], [facility] 05/27/2025 17:10:26 OBGyn Episode Ob Episode Information Episode Created Date Number of Fetuses Patient Bloodtype Patient rh Status Prepregnancy Weight lbs Domestic Partner Domestic Partner Phone Father Name Tobacco Stripper Hand Status 05/27/20 25 1 CLOSED Fetus Data First Name Last Name Admitted to NICU Weight (g) Sex Living Outcome Pediatric Complications Fetus ID Race Codes Race Delivery Type 2579.57 [id number] F Full Term [id number] Vaginal Delivery Truong Calculation Initial Truong Date Initial Exam Date Initial Exam Provider Initial Ultrasound Date Last Menstrual Period Date Ultra Sound Weeks Gestation 0 Eighteen To Twenty Week Truong Update Ultra Sound Date Fundal Height At Umbil Quickening Date Ultra Sound Latest Weeks Gestation Final Truong Confirmed By Final Truong Confirmed Date Final Truong Date Ultra Sound Latest Days Gestation 0 0 Menstrual History Last Menstrual Date Menses Monthly On Bcp Conception Prior Menses Frequency Hcg Plus Date Menarche Onset Age Delivery Information Delivery Date Delivery Type Labor Anesthesia Weeks Gestation Incision Type Labor Labor Length Hrs Delivered By Post Complications Tubal Sterilization Discharge Date Comments 5 38 false Discharge Information Feeding Method Contraceptive Method Maternal HG B and HCT Levels Ob Episode Information Episode Created Date Number of Fetuses Patient Bloodtype Patient rh Status Prepregnancy Weight lbs Domestic Partner Domestic Partner Phone Father Name Tobacco Stripper Hand Status 05/27/20 25 1 CLOSED Fetus Data First Name Last Name Admitted to NICU Weight (g) Sex Living Outcome Pediatric Complications Fetus ID Race Codes Race Delivery Type M Full Term [id number] Vaginal Delivery Truong Calculation Initial Truong Date Initial Exam Date Initial Exam Provider Initial Ultrasound Date Last Menstrual Period Date Ultra Sound Weeks Gestation 0 Eighteen To Twenty Week Truong Update Ultra Sound Date Fundal Height At Umbil Quickening Date Ultra Sound Latest Weeks Gestation Final Truong Confirmed By Final Truong Confirmed Date Final Truong Date Ultra Sound Latest Days Gestation 0 0 Menstrual History Last Menstrual Date Menses Monthly On Bcp Conception Prior Menses Frequency Hcg Plus Date Menarche Onset Age Delivery Information Delivery Date Delivery Type Labor Anesthesia Weeks Gestation Incision Type Labor Labor Length Hrs Delivered By Post Complications Tubal Sterilization Discharge Date Comments 4 false Discharge Information Feeding Method Contraceptive Method Maternal HG B and HCT Levels
--- OUTSIDE RECORDS SUMMARY | 2025-07-08 19:51 | XMS_ITS | Clinical Summary ---
Author Organization [facility] Address [address] [place] [address] Phone Care Team Providers Care Assembly Line Upholsterer Name Role Phone Provider, Unknown Primary Care [...] drink = 0.6 oz pur e alcohol) [facility] Utilities Answer Date Recorded In the past 12 months has [employer], gas, oil, or water [employer] threatened to shut off services in your home? Patient declined 10/14/2024 Social Connection and Isolation Panel Answer Date Recorded In a typical week, how many times do you talk on the phone with family, friends, or neighbors? Patient declined 10/14/2024 How often do you get togethe r with friends or relatives? Patient declined 10/14/2024 How often do you attend sikhism or spiritism serv ices? Patient declined 10/14/2024 Do you belong to any clubs o r organizations such as sikhism groups, unions, fraternal or athletic groups, or [...] medical care, and heating? Patient declined 10/14/2024 [facility] - Occupational Stress Questionnaire Answer Date Recorded [...] any time in the past 12 m [facility], were you homeless or living in a fpc (including now)? Patient declined 10/14/2024 Comments Yes Sex and Gender Information Value Date Recorded Sex Assigned at Not on file Legal Sex Female 11:11 PM COSMETICS COUNTER MANAGER Gender Identity Not on file Sexual Orientation Not on file Last Filed Vital Signs Vital Sign Reading Time Taken Comments Blood Pressure 134/94 10/16/2024 2:00 AM COSMETICS COUNTER MANAGER Pulse 83 10/16/2024 2:00 AM COSMETICS COUNTER MANAGER Temperature 37.2 C (98.9 F) 10/16/2024 1:23 AM COSMETICS COUNTER MANAGER Respiratory Rate 22 10/16/2024 1:23 AM COSMETICS COUNTER MANAGER Oxygen Saturation 100% 10/16/2024 2:00 AM COSMETICS COUNTER MANAGER Inhaled Oxygen Concentration - - Weight 95.3 kg (210 lb) 10/16/2024 1:23 AM COSMETICS COUNTER MANAGER Height 182.9 cm (6') 10/16/2024 1:23 AM COSMETICS COUNTER MANAGER Body Mass Index 28.48 10/16/2024 1:23 AM COSMETICS COUNTER MANAGER Plan of Treatment Health Maintenance Due Date Last Done Comments Hepatitis C Virus (HCV) Screening 2002 Meningococcal B Immunization (2 of 2 - Bexsero SCDM 2-dose series) 07/09/2019 01/07/2019 Pap Smear 2023 Influenza Immunization (#1) 2025 11/0 10/2022, 06/27/2016, 08/19/2015 SARS-COV-2 Immunization (3 - season) 2025 06/30/2021, 05/25/2021 Respiratory Syncytial Virus (RSV) Immunization (Adult) (1 [...] age to complete this topic Insurance MEDICAID [place] Advance Directives * Full Code (Latest Code Status on File) Date Activated Date Inactivated Comments 10/14/2024 10:29 PM CPR-Full Beena tment: FULL ARREST: Attempt Resuscitation/CPR wit intubation and mechanical ventilation. PRE-ARREST: Use entire range of life support measures to stabilize the patient. Care Teams Assembly Line Upholsterer Relationship Specialty Start Date End Date Provider, Unknown UNKNOWN PCP - General 06/09/24
[2025-07-08 19:52] LABS: Hematocrit 34.6 % (37.0-47.0); Hemoglobin 10.8 g/dL (12.0-15.0); Immature Granulocyte Percent A 0.7 % (0-0.5); Lymphocytes Absolute Auto 0.83 K/mm3 (0.9-3.2); Mean Corpuscular HGB Conc 31.2 g/dl (32-36); Mean Corpuscular Hemoglobin 24.1 pg (26-34); Mean Corpuscular Volume 77.2 fl (80-100); Nucleated Red Blood Cells Absolute Auto 0.000 K/mm3 (0.0-0.012); Nucleated Red Blood Cells Perc 0.0 % (0.0-0.2); Platelet Count Result 272 k/mm3 (150-375); Red Blood Count 4.48 M/mm3 (4.2-5.4); White Blood Count 19.7 K/mm3 (4.5-10.0)
[2025-07-08] MEDS: ACETAMINOPHEN 500 MG TABLET 1000 MG PO (19:54)
[2025-07-08] MEDS: LACTATED RINGERS 1,000 ML 999 ML IV CONT (19:54)
--- NOTE | 2025-07-08 19:56 | ED_ITS ---
HPI - Fever General Chief Complaint: Syncope Stated Complaint: syncope Time Seen by Provider: 07/08/25 18:45 Source: patient Mode of arrival: EMS Limitations: no limitations History of Present Illness HPI Narrative: This is a 25 year old female that presents to the ER for abdominal pain. Ongoing over the last 2 days. Reports diarrhea, dysuria. Right lower quadrant abdominal pain. Reports she had a seizure today. Reports known history of seizure disorder. She does report she has been taking her anti-epleptics, but does not know what it is called. Denies vomiting. Related Data Allergies Allergy/AdvReac Type Severity Reaction Status Date / Time No Known Allergies Allergy Verified 05/16/25 05:59 Review of Systems 2 Review of Systems: All systems reviewed & are unremarkable except as noted in HPI and below PMFSH Past Medical History Medical History (Updated 07/08/25 @ 21:55 by Bharati Zavaleta PA-C) Hx of shoulder dystocia in prior , currently Smoker Overweight (BMI 25.0-29.9) and not yet delivered Social History Social History Smoking status: Current every day smoker Tobacco type: e-cigarettes/vaping Lack of Transportation: No Lack of Food: Never True Current Housing: I Have Housing Concerned About Future Housing: No Difficulty Paying Gas/Electric Bills: No Difficulty Paying for Meds: No Currently Unemployed: No Education: High School Diploma/GED Difficulty w/ Childcare or Family Care: No Spiritual care concerns: No Exam 2 Narrative: GENERAL: Ill-appearing, well-nourished, and in no acute distress. HEAD: Normocephalic, atraumatic. EYES: PERRLA and EOMI. ENT: Nares clear, no rhinorrhea or epistaxis. Mucous membranes moist. Oropharynx without tonsillar hypertrophy exudate or other lesions. Bilateral TMs pearly rodriguez non-bulging NECK: Supple. No adenopathy or masses. CHEST: Clear to auscultation. No respiratory distress. No wheezes rales or rhonchi HEART: Regular rate and rhythm. No murmur heard. Normal peripheral pulses. ABDOMEN: Soft, nontender, nondistended, normal active bowel sounds. EXTREMITIES: Normal range of motion. No edema. SKIN: Warm, dry, no rash. NEURO: No focal deficits. Alert and oriented x3. CN II-XII grossly intact PSYCH: Normal mood and affect Course Vital Signs Vital signs: Vital Signs Temperature 101.1 F H 07/08/25 18:51 Pulse Rate 131 H 07/08/25 18:51 Respiratory Rate 18 07/08/25 18:51 Blood Pressure 132/86 07/08/25 18:51 Pulse Oximetry 100 07/08/25 18:51 Temperature 99.6 F 07/08/25 22:18 Pulse Rate 122 H 07/08/25 22:18 Respiratory Rate 16 07/08/25 22:18 Blood Pressure 152/106 H 07/08/25 22:18 Pulse Oximetry 95 07/08/25 22:18 MDM - Fever MDM Narrative Medical decision making narrative: Patient presents the emergency department for right-sided abdominal pain, fevers, dysuria. Also reporting a seizure today. Patient does report known history of seizure disorder. Reports she has been taking her antiepileptics. Patient febrile and tachycardic upon arrival, this down trended with IV fluids. CBC with leukocytosis to 19.7. Metabolic panel with evidence of dehydration. Urine with evidence of infection. Influenza, RSV and COVID screens are negative. Chest x-ray is normal. CT brain without acute findings. CTA chest PE with abdomen pelvis obtained for further evaluation. Shows evidence of pyelonephritis. No acute cardiopulmonary abnormality. Patient updated on her workup and need for admission for further care. She refuses to be admitted to the hospital at this time. She will be signing out AMA. Given the risks of doing so, including . Differential Diagnosis Differential diagnosis: Likely cellulitis, fever of unknown origin, gastroenteritis, community acquired pneumonia, pyelonephritis, viral infection and sepsis Lab Data Attestation: I reviewed the patient's lab results. 07/08/25 19:44 07/08/25 19:44 Labs: Lab Results 07/08/25 07/08/25 07/08/25 Range/Units 19:18 19:44 21:38 WBC 19.7 H (4.5-10.0) K/mm3 RBC 4.48 (4.2-5.4) M/mm3 Hgb 10.8 L (12.0-15.0) g/dL Hct 34.6 L (37.0-47.0) % MCV 77.2 L (80-100) fl MCH 24.1 L (26-34) pg MCHC 31.2 L (32-36) g/dl RDW 17.5 H (11.5-14.5) % Plt Count 272 (150-375) k/mm3 MPV 9.9 (7.4-10.4) fl Immature Gran % (Auto) 0.7 H (0-0.5) % Neut % (Auto) 87.0 H (45.5-73.1) % Lymph % (Auto) 4.2 L (18.3-44.2) % Laurel % (Auto) 7.4 (2.6-8.5) % Eos % (Auto) 0.5 (0-4.4) % Baso % (Auto) 0.2 (0.2-1.2) % Lymph # (Auto) 0.83 L (0.9-3.2) K/mm3 Laurel # (Auto) 1.5 H (0.1-0.6) K/mm3 Eos # (Auto) 0.1 (0-0.3) K/mm3 Baso # (Auto) 0.0 (0.0-0.1) K/mm3 Abs Immat Gran (auto) 0.14 H (0.00-0.031) K/mm3 Absolute Neuts (auto) 17.1 H (1.3-6.7) K/mm3 Absolute Nucleated RBC 0.000 (0.0-0.012) K/mm3 Nucleated RBC % 0.0 (0.0-0.2) % PT 16.3 H (11.1-14.7) Seconds INR 1.3 APTT 37.4 H (22.3-36.8) Seconds Sodium 134 L (137-145) mmol/L Potassium 3.7 (3.4-5.0) mmol/L Chloride 98 (98-107) mmol/L Carbon Dioxide 24 (22-30) mmol/L Anion Gap 12 (4-12) mmol/L BUN 19 H D (7-17) mg/dL Creatinine 1.27 H (0.7-1.0) mg/dL Estim Creat Clear Calc 73 ml/min Estimated GFR 52 L (59 - ) Glucose 128 H (65-110) mg/dL Lactic Acid 1.7 (0.7-2.0) mmol/L Calcium 8.9 (8.4-10.2) mg/dL Total Bilirubin 0.7 (0.2-1.3) mg/dL AST 36 (14-36) U/L ALT 22 (6-35) U/L Alkaline Phosphatase 141 H (38-126) U/L Total Creatine Kinase 118 (30-135) U/L Troponin I 0.047 H* (0.000-0.034) ng/mL Total Protein 8.5 H (6.3-8.2) g/dL Albumin 4.1 (3.5-5.1) g/dL Serum HCG, Qual Negative Urine Color Yellow (Yellow) Urine Appearance Turbid H (Clear) Urine pH 5.5 (5.0-9.0) Ur Specific [place] 1.042 H (1.001-1.035) Urine Protein 2+ H (Negative) mg/dL Urine Glucose (UA) Negative (Negative) mg/dL Urine Ketones Trace H (Negative) mg/dL Ur Blood (Man) Trace (Negative) Urine Nitrate Negative (Negative) Urine Bilirubin Negative (Negative) Urine Urobilinogen 0.2 (<2.0) mg/dL Add Ur Microanalysis Reviewed Leukocyte Esterase Rfl 2+ H (Negative) CAMELIA/UL Urine RBC 0-2 (0-2) /hpf Urine WBC 21-50 H (0-3) /hpf Ur Squamous Epith Cells Few (Few) /hpf Amorphous Sediment Few H (None) Urine Bacteria None seen /hpf Urine Casts 11-20 POC Urine HCG, Qual (Negative) Urine Opiates Screen Negative (Negative) Urine Methadone Screen Negative (Negative) Ur Barbiturates Screen Negative (Negative) Ur Phencyclidine Scrn Negative (Negative) Ur Amphetamine Screen Negative (Negative) U Benzodiazepines Scrn Positive A (Negative) Urine Cocaine Screen Negative (Negative) U Cannabinoids Screen Negative (Negative) Ethyl Alcohol < 10 (<10) mg/dL C. trachomatis (PCR) Pending Influenza A (RT-PCR) Negative (Negative) Influenza B (RT-PCR) Negative (Negative) N. gonorrhoeae (PCR) Pending RSV (RT-PCR) Negative (Negative) SARS-CoV-2 RNA (RT-PCR) Negative (Negative) T. vaginalis (PCR) Pending 07/08/25 Range/Units 21:46 WBC (4.5-10.0) K/mm3 RBC (4.2-5.4) M/mm3 Hgb (12.0-15.0) g/dL Hct (37.0-47.0) % MCV (80-100) fl MCH (26-34) pg MCHC (32-36) g/dl RDW (11.5-14.5) % Plt Count (150-375) k/mm3 MPV (7.4-10.4) fl Immature Gran % (Auto) (0-0.5) % Neut % (Auto) (45.5-73.1) % Lymph % (Auto) (18.3-44.2) % Laurel % (Auto) (2.6-8.5) % Eos % (Auto) (0-4.4) % Baso % (Auto) (0.2-1.2) % Lymph # (Auto) (0.9-3.2) K/mm3 Laurel # (Auto) (0.1-0.6) K/mm3 Eos # (Auto) (0-0.3) K/mm3 Baso # (Auto) (0.0-0.1) K/mm3 Abs Immat Gran (auto) (0.00-0.031) K/mm3 Absolute Neuts (auto) (1.3-6.7) K/mm3 Absolute Nucleated RBC (0.0-0.012) K/mm3 Nucleated RBC % (0.0-0.2) % PT (11.1-14.7) Seconds INR APTT (22.3-36.8) Seconds Sodium (137-145) mmol/L Potassium (3.4-5.0) mmol/L Chloride (98-107) mmol/L Carbon Dioxide (22-30) mmol/L Anion Gap (4-12) mmol/L BUN (7-17) mg/dL Creatinine (0.7-1.0) mg/dL Estim Creat Clear Calc ml/min Estimated GFR (59 - ) Glucose (65-110) mg/dL Lactic Acid (0.7-2.0) mmol/L Calcium (8.4-10.2) mg/dL Total Bilirubin (0.2-1.3) mg/dL AST (14-36) U/L ALT (6-35) U/L Alkaline Phosphatase (38-126) U/L Total Creatine Kinase (30-135) U/L Troponin I (0.000-0.034) ng/mL Total Protein (6.3-8.2) g/dL Albumin (3.5-5.1) g/dL Serum HCG, Qual Urine Color (Yellow) Urine Appearance (Clear) Urine pH (5.0-9.0) Ur Specific [place] (1.001-1.035) Urine Protein (Negative) mg/dL Urine Glucose (UA) (Negative) mg/dL Urine Ketones (Negative) mg/dL Ur Blood (Man) (Negative) Urine Nitrate (Negative) Urine Bilirubin (Negative) Urine Urobilinogen (<2.0) mg/dL Add Ur Microanalysis Leukocyte Esterase Rfl (Negative) CAMEL[place]/UL Urine RBC (0-2) /hpf Urine WBC (0-3) /hpf Ur Squamous Epith Cells (Few) /hpf Amorphous Sediment (None) Urine Bacteria /hpf Urine Casts POC Urine HCG, Qual Negative (Negative) Urine Opiates Screen (Negative) Urine Methadone Screen (Negative) Ur Barbiturates Screen (Negative) Ur Phencyclidine Scrn (Negative) Ur Amphetamine Screen (Negative) U Benzodiazepines Scrn (Negative) Urine Cocaine Screen (Negative) U Cannabinoids Screen (Negative) Ethyl Alcohol (<10) mg/dL C. trachomatis (PCR) Influenza A (RT-PCR) (Negative) Influenza B (RT-PCR) (Negative) N. gonorrhoeae (PCR) RSV (RT-PCR) (Negative) SARS-CoV-2 RNA (RT-PCR) (Negative) T. vaginalis (PCR) Imaging Data Radiologist's impression: ITS Impressions Chest X-Ray 07/08/25 20:04 IMPRESSION: 1. Normal chest radiograph. Head CT 07/08/25 20:48 IMPRESSION: 1. No acute intracranial findings. Chest/Abdomen/Pelvis CTA 07/08/25 20:58 IMPRESSION: 1. Geographic regions of decreased parenchymal enhancement throughout the right kidney suspicious for pyelonephritis. Correlate with urinalysis. 2. No pulmonary embolism or other acute cardiopulmonary disease. Critical Care Time Critical Care Time Critical Care Time: Yes Total Critical Care Time: 35 Discharge Plan Discharge Clinical Impression: Pyelonephritis Patient Disposition: Left Against Medical Advice Condition: Serious Instructions: Kidney Infection (ED) Additional Instructions: Return at any time for further management Patient Language: Belarusian Prescriptions: New cefdinir 300 mg capsule 300 mg PO Q12H 10 Days Qty: 20 0RF No Action ibuprofen 600 mg Tablet 600 mg PO Q6H PRN (Reason: Cramping) Qty: 30 0RF sertraline [Zoloft] 50 mg Tablet 50 mg PO QAM Qty: 60 1RF Follow-up/Referrals: PHYSICIAN,PROTECTIVE SIGNAL OPERATIONS SUPERVISOR [Primary Care Provider, Internal Medicine] Ming Cassidy MD [Physician, Family Practice]
[2025-07-08 19:59] LABS: Influenza A QL RT-PCR Negative (Negative); Influenza B QL RT-PCR Negative (Negative); RSV RNA, RT-PCR Negative (Negative); SARS-CoV-2 RNA PCR Negative (Negative)
[2025-07-08 20:03] LABS: SPREG INTERNAL CONTROL Positive; Serum Qual hCG Negative
[2025-07-08 20:05] LABS: Alanine Aminotransferase 22 U/L (6-35); Albumin Level 4.1 g/dL (3.5-5.1); Alkaline Phosphatase 141 U/L (38-126); Anion Gap 12 mmol/L (4-12); Aspartate Amino Transferase 36 U/L (14-36); Bilirubin,Total 0.7 mg/dL (0.2-1.3); Blood Urea Nitrogen 19 mg/dL (7-17); Calcium 8.9 mg/dL (8.4-10.2); Carbon Dioxide 24 mmol/L (22-30); Chloride 98 mmol/L (98-107); Creatine Kinase 118 U/L (30-135); Estimated CRCL calculation 73 ml/min; Estimated Glomerular Filt Rate 52; Glucose 128 mg/dL (65-110); Potassium 3.7 mmol/L (3.4-5.0); Sodium 134 mmol/L (137-145); Total Protein 8.5 g/dL (6.3-8.2)
[2025-07-08 20:08] LABS: INR 1.3; Prothrombin Time 16.3 Seconds (11.1-14.7)
[2025-07-08 20:10] LABS: Partial Thromboplastin Time 37.4 Seconds (22.3-36.8)
[2025-07-08 20:25] LABS: Troponin I 0.047 ng/mL (0.000-0.034)
--- NOTE | 2025-07-08 20:28 | PC.NURSE ---
WALLY [place] to bedside to attempt blood cultures d/t pt. being a difficult stick.
--- NOTE | 2025-07-08 21:45 | PC.NURSE ---
Pt. had an 1x episode of emesis on self, bedding and floor. Vomit liquid and green. Pt. cleaned of vomit and linens changed. Pt. also has red, flat, non-itching rash to bilateral shoulders, neck, patches on face, arms and legs. Pt. states this happens when she gets stressed. LAKESHA Zavaleta notified and to bedside to assess.
[2025-07-08 21:48] LABS: BEDSIDEPREGUCG Negative (Negative)
[2025-07-08 22:05] LABS: Cannabinoid Screen Urine Negative (Negative)
[2025-07-08 22:08] LABS: Add Urine Microscopic? YES; Appearance Urine Turbid (Clear); Glucose Urine UA Negative (Negative); Leukocyte Esterase Ur 2+ LEU/UL (Negative); Need Manual Microscopic Reviewed; Nitrate Urine Negative (Negative); Specific Grav Ur 1.042 (1.001-1.035)
[2025-07-08 22:18] VITALS: BP 152/106; PULSE 122; RESP 16; TEMP 37.6; O2SAT 95
--- NOTE | 2025-07-08 22:19 | PC.NURSE ---
Pt. refusing all ordered medications. Bharati CROWDER explained risks of leaving, at bedside. Pt. is A&Ox4 and verbalized understanding. Pt. signed AMA paperwork.
--- NOTE | 2025-07-08 22:30 | PC.NURSE ---
Pt. able to dress herself and ambulate without assistance. Upon standing, pt. had BM in depend. Per Business Texter helping pt., pt. refused to supplies or help cleaning up. Pt. ambulated to waiting room to charge her phone and call boyfriend for a ride home.
[2025-07-08 22:51] LABS: Trichomonas Vag PCR NOT DETECTED (NOT DETECTE)
== END 2025-07-08 22:39 | disposition left against medical advice (07) ==
PROVIDERS: Emergency Provider Physician Assistant
DX: N12 Tubulo-interstitial nephritis, not specified as acute or chronic (principal); Z20.822 Contact with and (suspected) exposure to COVID-19; G40.909 Epilepsy, unspecified, not intractable, without status epilepticus; F17.290 Nicotine dependence, other tobacco product, uncomplicated; Z79.899 Other long term (current) drug therapy; R00.0 Tachycardia, unspecified; R94.31 Abnormal electrocardiogram [ECG] [EKG]
CPT/HCPCS: 36415; 70450; 71045; 71275; 74177; 80053; 80307; 81001; 81025; 82077; 82550; 83605; 84484; 84703; 85025; 85610; 85730; 87040; 87086; 87186; 87491; 87591; 87637; 87661; 93005; 96360; 96361; 99284; A9270; J7120; Q9967

== ENCOUNTER 2025-09-01 19:03 | Inpatient (IN) | payer OTHER, SELFPAY ==
--- NOTE | ~2025-09-01 | CT_ITS ---
CT HEAD NON-CONTRAST Clinical History: AMS Comparison: 07/08/2025 Technique: Unenhanced axial images skull base to vertex Coronal, sagittal reformats CT images acquired with automatic exposure control for dose reduction DLP: 681 mGy-cm Findings: Sulci, ventricles: Unremarkable. No intracerebral hemorrhage. No evidence acute territorial infarct. No mass effect, midline shift. Bony calvarium intact. Visualized paranasal sinuses: Minimal right maxillary disease. Mastoid air cells: Clear. IMPRESSION: 1. No acute intracranial findings. Reviewed, dictated and finalized at location R. LETION MANAGER
--- NOTE | ~2025-09-01 | MR_ITS ---
EXAMINATION: MR brain/brain stem wo/w con DATE: 09/04/2025 12:37 HOMEMAKING REHABILITATION CONSULTANT INDICATION: Sepsis related to pyelonephritis. TECHNIQUE: Magnetic resonance imaging (MRI) of the brain and brainstem was performed without intravenous contrast. Sequences included sagittal and axial T1-weighted SE, axial diffusion-weighted FS SE, axial T2*-weighted GRE, axial T2-weighted FLAIR Propeller, and axial T2-weighted Propeller. Apparent diffusion coefficient (ADC) maps were created. 12 cc MultiHance administered intravenously. COMPARISON: CT dated 09/01/2025 FINDINGS: The brain volume and ventricular system are within normal limits. The brain parenchymal signal intensity pattern and rodriguez/white matter is normal and there is no evidence of hemorrhage, space occupying masses or infarctions. The flow signal voids of the major arterial structures about the [place] and within the major dural venous sinuses appear grossly unremarkable and patent. The seventh and eighth cranial nerve complexes are normal. The mid sagittal image demonstrates a normal craniovertebral junction and corpus callosum. The paranasal sinuses are grossly unremarkable. No abnormal contrast enhancement was appreciated. IMPRESSION: 1: Unremarkable MRI of the brain. Reviewed, dictated and finalized at location I. MAKING REHABILITATION CONSULTANT
--- NOTE | ~2025-09-01 | XR_ITS ---
XR chest 1V portable INDICATION:AMS . REFERENCE: None FINDINGS: A single AP of the chest demonstrates normal heart size. The lungs are clear. There is no evidence of pneumothorax or pleural effusion. IMPRESSION: No acute pulmonary findings. Reviewed, dictated and finalized at location S. VALUE ASSOCIATE
--- NOTE | ~2025-09-01 | CT_ITS ---
EXAMINATION: CT chest abdomen pelvis w con DATE: 09/01/2025 23:37 INDICATION: Fever. Altered mental status. TECHNIQUE: Computed tomography (CT) of the chest, abdomen, and pelvis was performed with 100 mL Omnipaque 350 intravenous contrast. Automated exposure control and iterative reconstruction technique were employed. The dose-length product was 1585.65 mGy-cm. COMPARISON: CT 07/08/2025 FINDINGS: CHEST CT: The lungs demonstrate mild dependent atelectasis. No pleural effusion. The heart size is normal. No pericardial effusion. There is mild thoracic spondylosis. ABDOMEN/PELVIS CT: The liver, gallbladder, spleen, pancreas, and kidneys are normal. There is a striated nephrogram in right kidney, consistent with pyelonephritis. Left kidney is normal. There are no dilated loops of bowel. The appendix is normal. There are no pathologically enlarged lymph nodes. There is no free intraperitoneal fluid. There is mild lumbar spondylosis. IMPRESSION: 1. Right-sided acute pyelonephritis. Reviewed, dictated and finalized at location E. SPACE MEDICINE PHYSICIAN
[2025-09-01 19:07] VITALS: BP 124/84; PULSE 61; RESP 14; TEMP 38; O2SAT 98
--- NOTE | 2025-09-01 19:17 | ECG_ITS ---
Test Date: 2025-09-01 21:23:04 Measurements Intervals [place] Rate: 67 P: 62 [place]: 127 QRS: 66 QRSD: 82 T: 50 QT: 417 QTc: 443 Interpretive Statements SINUS RHYTHM WITH MARKED SINUS ARRHYTHMIA NONSPECIFIC T-WAVE ABNORMALITY- ANTERIOR LEADS BASELINE ARTIFACT- I, III, AVR, AVL, AVF, V1-V6 BORDERLINE ECG Compared to ECG 07/08/2025 19:10:40 HEART RATE HAS DECREASED Electronically Signed On 09-02-2025 06:13:49 ELECTRON BEAM WELDER by Jose Montes D.O.
--- NOTE | 2025-09-01 19:17 | ED_ITS ---
HPI - Altered Mental Status General Chief Complaint: Altered Mental Status Stated Complaint: hyperglycemia Time Seen by Provider: 09/01/25 19:12 History of Present Illness HPI narrative: Patient is a 25 yo F presenting to the ED via EMS being found at a bus stop and confused, reportedly released from residential today, admitted to drug use, unknown drugs, reportedly recently delivered a child in the recent past, vomiting. Patient not answering any questions. patient is following basic commands including squeezing my hands bilaterally and moving her legs on command. Related Data Home Medications ?Medication ?Instructions ?Recorded ?Confirmed ?Last Taken ?Type No Home Medications 02/07/22 02/07/22 U nknown History Allergies Allergy/AdvReac Type Severity Reaction Status Date / Time No Known Allergies Allergy Verified 08/19/25 11:27 Review of Systems 2 Review of Systems: ROS unobtainable: Yes unobtainable due to mental status PMFSH Past Medical History Medical History (Updated 09/02/25 @ 01:19 by Jenaro Atkins DO) Oppositional defiant disorder Seizure disorder (04/29/14) Hx of shoulder dystocia in prior , currently Smoker Overweight (BMI 25.0-29.9) and not yet delivered Surgical History Surgical History (Updated 08/19/25 @ 11:27 by Gerson Hernandez) No pertinent past surgical history Social History Social History (System 08/19/25 @ 11:27 by Gerson Hernandez) Smoking status: Current every day smoker Tobacco type: e-cigarettes/vaping Lack of Transportation: No Lack of Food: Never True Current Housing: I Have Housing Concerned About Future Housing: No Difficulty Paying Gas/Electric Bills: No Difficulty Paying for Meds: No Currently Unemployed: No Education: High School Diploma/GED Difficulty w/ Childcare or Family Care: No Spiritual care concerns: No Exam 2 Narrative: CONST: No acute distress. Intermittently vomiting in the room with yellow appearance to the emesis HENMT: Head is normocephalic and atraumatic. dry mucous membranes. No posterior oropharynx erythema. EYES: No scleral icterus. No conjunctival injection or pallor. PERRL. pupils are 4-5 mm and equal round reactive to light bilaterally. NECK: No meningeal signs. RESP: Normal respiratory effort. CTAB. CARDIO: Regular rate. Regular rhythm. 2+ DP and radial pulses bilaterally. GI: Nondistended. No tenderness to palpation. Soft. SKIN: No rashes or lesions noted on exposed skin. NEURO: Moves all extremities. Follows basic commands. No providing any verbal responses however nurses do note that she will occasionally provide them with verbal responses. EXTREM/MSK/BACK: No pedal edema. Course Vital Signs Vital signs: Vital Signs Temperature 100.4 F H 09/01/25 19:07 Pulse Rate 61 09/01/25 19:07 Respiratory Rate 14 09/01/25 19:07 Blood Pressure 124/84 09/01/25 19:07 Pulse Oximetry 98 09/01/25 19:07 Oxygen Delivery Room Air 09/01/25 19:07 Temperature 100.4 F H 09/01/25 19:07 Pulse Rate 61 09/01/25 19:07 Respiratory Rate 14 09/01/25 19:07 Blood Pressure 124/84 09/01/25 19:07 Pulse Oximetry 100 09/01/25 21:25 Oxygen Delivery Room Air 09/01/25 21:25 [facility] MDM Narrative Medical decision making narrative: Patient presents with the above complaint. Initial vitals are remarkable for a temperature of 100.4? F. Physical examination as noted above. Plan: laboratory analysis, EKG, imaging. Patient ordered IVF, antipyretics, antiemetic. patient was seen in the emergency department on July 08, 2025 and diagnosed with pyelonephritis. Patient reported a history of seizure disorder in taking her antiepileptics. On reassessment patient is resting comfortably. No acute distress, is answering questions now, following all commands. Stat read preliminary report of the CT of the chest reveals no significant abnormalities, lungs are moderately inflated. And without contrast is small amount mucosal thickening in the right maxillary sinus without gas fluid level. Abdomen pelvis with contrast reveals 3.4 cm area of ill-defined decreased enhancement involving the upper pole the right kidney suspicious for pyelonephritis. The left kidney is unremarkable. Mild fatty infiltration of the liver. No focal mass lesion is seen. The gallbladder pancreas spleen and adrenal glands are unremarkable. The appendix is normal. The aorta is nondilated. Bowel loops and dilated. No acute inflammatory changes are seen involving the bowel. Skeletal structures are unremarkable. I spoke with the hospitalist on-call who has accepted the patient for admission. Differential Diagnosis Differential Diagnosis: substance abuse, UTI, metabolic derangement, electrolyte derangement, pneumonia, intracranial hemorrhage, retained products of conception, gastritis, gastroenteritis, viral URI, sepsis. Medical Records I have reviewed the following patient records and this information was taken into consideration when formulating the assessment and plan.: previous ER visits Lab Data MDM Lab Attestation statement: I personally reviewed the patient's lab results. Lab results narrative: CBC reveals a white blood cell count 10.7, platelet count of 507. Coags are without any significant abnormalities. VBG reveals a pH of 7.438, pCO2 of 36.3. Comprehensive metabolic panel reveals an AST of 45. Lipase is 171. TSH is 0.384. hCG testing is negative. Procalcitonin is 0.0. Beta hydroxybutyrate is 0.69. CRP is less than 0.5. Troponin is less than 0.012. Total creatine kinase is 54. Magnesium is 2.2. Lactic acid is 1.3. Phosphorus is 4.3. Salicylates are less than 1.0. Acetaminophen is less than 10. Ethyl alcohol level is less than 10. COVID flu and RSV testing are negative. Urinalysis via straight cath showed 1+ protein, 1+ ketones, 1+ bilirubin, 2+ leukocyte esterase, 21-50 wbc's, rare bacteria. UDS is positive for benzodiazepines and cannabinoids. 09/01/25 19:58 09/01/25 19:58 Labs: Lab Results 09/01/25 09/01/25 09/01/25 Range/Units 19:17 19:58 20:38 WBC 10.7 H (4.5-10.0) K/mm3 RBC 5.06 (4.2-5.4) M/mm3 Hgb 12.1 (12.0-15.0) g/dL Hct 40.1 (37.0-47.0) % MCV 79.2 L (80-100) fl MCH 23.9 L (26-34) pg MCHC 30.2 L (32-36) g/dl RDW 18.1 H (11.5-14.5) % Plt Count 507 H D (150-375) k/mm3 MPV 9.9 (7.4-10.4) fl Immature Gran % (Auto) 0.7 H (0-0.5) % Neut % (Auto) 82.5 H (45.5-73.1) % Lymph % (Auto) 13.0 L (18.3-44.2) % [place] % (Auto) 3.3 (2.6-8.5) % Eos % (Auto) 0.0 (0-4.4) % Baso % (Auto) 0.5 (0.2-1.2) % Lymph # (Auto) 1.39 (0.9-3.2) K/mm3 [place] # (Auto) 0.4 (0.1-0.6) K/mm3 Eos # (Auto) 0.0 (0-0.3) K/mm3 Baso # (Auto) 0.1 (0.0-0.1) K/mm3 Abs Immat Gran (auto) 0.07 H (0.00-0.031) K/mm3 Absolute Neuts (auto) 8.8 H (1.3-6.7) K/mm3 Absolute Nucleated RBC 0.000 (0.0-0.012) K/mm3 Nucleated RBC % 0.0 (0.0-0.2) % PT 14.8 H (11.1-14.7) Seconds INR 1.1 APTT 26.7 (22.3-36.8) Seconds Sodium 142 (137-145) mmol/L Potassium 3.7 (3.4-5.0) mmol/L Chloride 105 (98-107) mmol/L Carbon Dioxide 26 (22-30) mmol/L Anion Gap 11 (4-12) mmol/L BUN 12 D (7-17) mg/dL Creatinine 0.73 (0.7-1.0) mg/dL Estim Creat Clear Calc Not Reportable Estimated GFR > 60 (59 - ) Glucose 104 (65-110) mg/dL POC Capillary Glucose 107 H (65-105) mg/dl Serum Osmolality Cancelled Lactic Acid 1.3 (0.7-2.0) mmol/L Calcium 10.1 (8.4-10.2) mg/dL Phosphorus 4.3 (2.5-4.5) mg/dL Magnesium 2.2 (1.6-2.3) mg/dL Total Bilirubin 0.7 (0.2-1.3) mg/dL AST 45 H (14-36) U/L ALT 23 (6-35) U/L Alkaline Phosphatase 77 (38-126) U/L Ammonia < 9 L (9-30) umol/L Total Creatine Kinase 54 (30-135) U/L Troponin I < 0.012 (0.000-0.034) ng/mL C-Reactive Protein < 0.5 (<1.0) mg/dL Total Protein 10.3 H (6.3-8.2) g/dL Albumin 4.9 (3.5-5.1) g/dL Lipase 171 (23-300) U/L Beta-Hydroxybutyrate/Acetoacetate 0.69 H (0.02-0.27) mmol/L Procalcitonin 0.0 ng/mL TSH 0.384 L (0.465-4.680) uIU/mL TSH (Reflex) 0.414 L (0.465-4.68) uIU/mL Free T4 1.06 (0.78-2.19) ng/dL Total T3 0.92 (0.82-1.58) NG/ML Serum HCG, Qual Negative Urine Color (Yellow) Urine Appearance (Clear) Urine pH (5.0-9.0) Ur Specific [place] (1.001-1.035) Urine Protein (Negative) mg/dL Urine Glucose (UA) (Negative) mg/dL Urine Ketones (Negative) mg/dL Ur Blood (Man) (Negative) Urine Nitrate (Negative) Urine Bilirubin (Negative) Urine Urobilinogen (<2.0) mg/dL Add Ur Microanalysis Leukocyte Esterase Rfl (Negative) CAMELIA/UL Urine RBC (0-2) /hpf Urine WBC (0-3) /hpf Ur Squamous Epith Cells (Few) /hpf Urine Bacteria /hpf Urine Casts Salicylates < 1.0 L (2-20) mg/dL Urine Opiates Screen (Negative) Urine Methadone Screen (Negative) Acetaminophen < 10 L (10-30) ug/mL Ur Barbiturates Screen (Negative) Ur Phencyclidine Scrn (Negative) Ur Amphetamine Screen (Negative) U Benzodiazepines Scrn (Negative) Urine Cocaine Screen (Negative) U Cannabinoids Screen (Negative) Ethyl Alcohol < 10 (<10) mg/dL Influenza A (RT-PCR) Negative (Negative) Influenza B (RT-PCR) Negative (Negative) RSV (RT-PCR) Negative (Negative) SARS-CoV-2 RNA (RT-PCR) Negative (Negative) 09/01/25 09/02/25 Range/Units 22:35 00:02 WBC (4.5-10.0) K/mm3 RBC (4.2-5.4) M/mm3 Hgb (12.0-15.0) g/dL Hct (37.0-47.0) % MCV (80-100) fl MCH (26-34) pg MCHC (32-36) g/dl RDW (11.5-14.5) % Plt Count (150-375) k/mm3 MPV (7.4-10.4) fl Immature Gran % (Auto) (0-0.5) % Neut % (Auto) (45.5-73.1) % Lymph % (Auto) (18.3-44.2) % [place] % (Auto) (2.6-8.5) % Eos % (Auto) (0-4.4) % Baso % (Auto) (0.2-1.2) % Lymph # (Auto) (0.9-3.2) K/mm3 [place] # (Auto) (0.1-0.6) K/mm3 Eos # (Auto) (0-0.3) K/mm3 Baso # (Auto) (0.0-0.1) K/mm3 Abs Immat Gran (auto) (0.00-0.031) K/mm3 Absolute Neuts (auto) (1.3-6.7) K/mm3 Absolute Nucleated RBC (0.0-0.012) K/mm3 Nucleated RBC % (0.0-0.2) % PT (11.1-14.7) Seconds INR APTT (22.3-36.8) Seconds Sodium (137-145) mmol/L Potassium (3.4-5.0) mmol/L Chloride (98-107) mmol/L Carbon Dioxide (22-30) mmol/L Anion Gap (4-12) mmol/L BUN (7-17) mg/dL Creatinine (0.7-1.0) mg/dL Estim Creat Clear Calc Estimated GFR (59 - ) Glucose (65-110) mg/dL POC Capillary Glucose (65-105) mg/dl Serum Osmolality Pending Lactic Acid (0.7-2.0) mmol/L Calcium (8.4-10.2) mg/dL Phosphorus (2.5-4.5) mg/dL Magnesium (1.6-2.3) mg/dL Total Bilirubin (0.2-1.3) mg/dL AST (14-36) U/L ALT (6-35) U/L Alkaline Phosphatase (38-126) U/L Ammonia (9-30) umol/L Total Creatine Kinase (30-135) U/L Troponin I (0.000-0.034) ng/mL C-Reactive Protein (<1.0) mg/dL Total Protein (6.3-8.2) g/dL Albumin (3.5-5.1) g/dL Lipase (23-300) U/L Beta-Hydroxybutyrate/Acetoacetate (0.02-0.27) mmol/L Procalcitonin ng/mL TSH (0.465-4.680) uIU/mL TSH (Reflex) (0.465-4.68) uIU/mL Free T4 (0.78-2.19) ng/dL Total T3 (0.82-1.58) NG/ML Serum HCG, Qual Urine Color Dark yellow (Yellow) Urine Appearance Clear (Clear) Urine pH 6.5 (5.0-9.0) Ur Specific [place] 1.031 (1.001-1.035) Urine Protein 1+ H (Negative) mg/dL Urine Glucose (UA) Negative (Negative) mg/dL Urine Ketones 1+ H (Negative) mg/dL Ur Blood (Man) Negative (Negative) Urine Nitrate Negative (Negative) Urine Bilirubin 1+ H (Negative) Urine Urobilinogen 1.0 (<2.0) mg/dL Add Ur Microanalysis Reviewed Leukocyte Esterase Rfl 2+ H (Negative) CAMELIA/UL Urine RBC 0-2 (0-2) /hpf Urine WBC 21-50 H (0-3) /hpf Ur Squamous Epith Cells Few (Few) /hpf Urine Bacteria Rare /hpf Urine Casts 0-2 Salicylates (2-20) mg/dL Urine Opiates Screen Negative (Negative) Urine Methadone Screen Negative (Negative) Acetaminophen (10-30) ug/mL Ur Barbiturates Screen Negative (Negative) Ur Phencyclidine Scrn Negative (Negative) Ur Amphetamine Screen Negative (Negative) U Benzodiazepines Scrn Positive A (Negative) Urine Cocaine Screen Negative (Negative) U Cannabinoids Screen Positive A (Negative) Ethyl Alcohol (<10) mg/dL Influenza A (RT-PCR) (Negative) Influenza B (RT-PCR) (Negative) RSV (RT-PCR) (Negative) SARS-CoV-2 RNA (RT-PCR) (Negative) ABG Data ABG results: 09/01/25 19:59 VBG pH 7.438 H* VBG pCO2 36.3 L VBG pO2 < 27.0 L VBG HCO3 24.0 O2 Delivery Device Room air O2 Liters/Min Not Reportable FiO2 21 Imaging Data Radiologist's impression: ITS Impressions Chest X-Ray 09/01/25 21:14 IMPRESSION: No acute pulmonary findings. ECG Data EKG #1: Attestation: I personally reviewed and interpreted this ECG as follows: ECG completion date: 09/01/25 ECG completion time: 21:23 Interpretation: Rate of 67, rhythm is sinus rhythm with marked sinus arrhythmia, nonspecific T- wave abnormality with T-wave inversion in V1 and V2, no ST elevation or depressions, QRS duration of 82 milliseconds, MO interval 127 milliseconds, QTC interval of 443 milliseconds. 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 Time Type: Intermittent Initial evaluation, discuss w/ involved parties, attempting to gather old records: 15 minutes Documenting medical record: 10 minutes Review of results (EKG's, labs, imaging): 10 minutes Serial repeat bedside evaluation: 10 minutes Discussing case with multiple memebers of the care team and consultants: 5 minutes Total Critical Care Time: 50 Discharge Plan Discharge Clinical Impression: Pyelonephritis, Encephalopathy, UTI (urinary tract infection), Polysubstance abuse, Sepsis Patient Disposition: Still a Patient Condition: Guarded Prognosis Patient Language: Citizen Of [place] Prescriptions: No Action No Home Medications cefdinir 300 mg capsule 300 mg PO Q12H 10 Days Qty: 20 0RF ibuprofen 600 mg Tablet 600 mg PO Q6H PRN (Reason: Cramping) Qty: 30 0RF sertraline [Zoloft] 50 mg Tablet 50 mg PO QAM Qty: 60 1RF Follow-up/Referrals: PHYSICIAN,PROBATION AND PAROLE OFFICER [Primary Care Provider, Internal Medicine] Time of Disposition: 01:34
[2025-09-01 19:59] LABS: Fractional Inspired Oxygen 21 %; HCO3 VBG 24.0 mEq/l (24.0-30.0); PCO2 VBG 36.3 mmHg (42.0-48.0)
[2025-09-01 20:02] LABS: PO2 VBG < 27.0 mmHg (35.0-45.0); pH VBG 7.438 (7.300-7.400)
[2025-09-01 20:07] LABS: Hematocrit 40.1 % (37.0-47.0); Hemoglobin 12.1 g/dL (12.0-15.0); Immature Granulocyte Percent A 0.7 % (0-0.5); Lymphocytes Absolute Auto 1.39 K/mm3 (0.9-3.2); Mean Corpuscular HGB Conc 30.2 g/dl (32-36); Mean Corpuscular Hemoglobin 23.9 pg (26-34); Mean Corpuscular Volume 79.2 fl (80-100); Nucleated Red Blood Cells Absolute Auto 0.000 K/mm3 (0.0-0.012); Nucleated Red Blood Cells Perc 0.0 % (0.0-0.2); Platelet Count Result 507 k/mm3 (150-375); Red Blood Count 5.06 M/mm3 (4.2-5.4); White Blood Count 10.7 K/mm3 (4.5-10.0)
[2025-09-01 20:16] LABS: SPREG INTERNAL CONTROL Positive; Serum Qual hCG Negative
[2025-09-01 20:21] LABS: Acetaminophen < 10 ug/mL (10-30); Ammonia < 9 umol/L (9-30); INR 1.1; Prothrombin Time 14.8 Seconds (11.1-14.7); Salicylate < 1.0 mg/dL (2-20)
[2025-09-01 20:22] LABS: Partial Thromboplastin Time 26.7 Seconds (22.3-36.8)
[2025-09-01 20:27] LABS: Alanine Aminotransferase 23 U/L (6-35); Albumin Level 4.9 g/dL (3.5-5.1); Alkaline Phosphatase 77 U/L (38-126); Anion Gap 11 mmol/L (4-12); Aspartate Amino Transferase 45 U/L (14-36); Beta-Hydroxybutyrate/Acetoace. 0.69 mmol/L (0.02-0.27); Bilirubin,Total 0.7 mg/dL (0.2-1.3); Blood Urea Nitrogen 12 mg/dL (7-17); Calcium 10.1 mg/dL (8.4-10.2); Carbon Dioxide 26 mmol/L (22-30); Chloride 105 mmol/L (98-107); Creatine Kinase 54 U/L (30-135); Estimated Glomerular Filt Rate > 60; Glucose 104 mg/dL (65-110); Potassium 3.7 mmol/L (3.4-5.0); Sodium 142 mmol/L (137-145); Total Protein 10.3 g/dL (6.3-8.2)
[2025-09-01 20:31] LABS: CRP < 0.5 mg/dL (<1.0); Lipase 171 U/L (23-300); Magnesium 2.2 mg/dL (1.6-2.3)
[2025-09-01 20:34] LABS: Troponin I < 0.012 ng/mL (0.000-0.034)
[2025-09-01 20:38] LABS: Procalcitonin 0.0 ng/mL
[2025-09-01 20:51] LABS: Thyroid Stimulating Hormone Reflex 0.414 uIU/mL (0.465-4.68)
[2025-09-01 20:52] LABS: Thyroid Stimulating Hormone 0.384 uIU/mL (0.465-4.680)
[2025-09-01] MEDS: SODIUM CHLORIDE 0.9% IV 1,000 ML 999 ML IV CONT ×2 (21:09→23:19)
[2025-09-01] MEDS: ACETAMINOPHEN 500 MG TABLET 1000 MG PO (21:10)
[2025-09-01] MEDS: ONDANSETRON INJ 4 MG/2 ML VIAL IV PUSH (21:10)
[2025-09-01] MEDS: THIAMINE HCL 200 MG/2 ML VIAL 100 MG IV PUSH (21:13)
[2025-09-01 21:25] VITALS: O2SAT 100
[2025-09-01 21:34] LABS: Free T4 Free Thyroxine Reflex 1.06 ng/dL (0.78-2.19)
[2025-09-01 21:36] LABS: Influenza A QL RT-PCR Negative (Negative); Influenza B QL RT-PCR Negative (Negative); RSV RNA, RT-PCR Negative (Negative); SARS-CoV-2 RNA PCR Negative (Negative)
[2025-09-01] MEDS: STAT BOLUS COMMUNICATION ORDER 2000 ML IV CONT (21:55)
[2025-09-01 22:21] LABS: Total Triiodothyronine (T3) 0.92 NG/ML (0.82-1.58)
[2025-09-01 22:57] LABS: Add Urine Microscopic? YES; Appearance Urine Clear (Clear); Glucose Urine UA Negative (Negative); Leukocyte Esterase Ur 2+ LEU/UL (Negative); Need Manual Microscopic Reviewed; Nitrate Urine Negative (Negative); Non Pathogenic Casts 0-2; Specific Grav Ur 1.031 (1.001-1.035)
[2025-09-01 22:59] LABS: Cannabinoid Screen Urine Positive (Negative)
--- NOTE | 2025-09-01 23:50 | PC.NURSE ---
Pt x1 episode of non-bloody emesis, bed linen and gown changed.
[2025-09-02] VITALS (10 sets, daily range): BP systolic 108–148; BP diastolic 71–101; PULSE 53–80; RESP 16–24; TEMP 36.8–37.2; O2SAT 98–99
[2025-09-02] MEDS: cefTRIAXone 1 GM in SODIUM CHLORIDE 0.9% IV 50 ML 100 ML IVPB (00:17)
[2025-09-02] MEDS: ONDANSETRON INJ 4 MG/2 ML VIAL IV PUSH ×3 (02:00→12:11)
--- NOTE | 2025-09-02 02:30 | PC.NURSE ---
Pt had 2 episodes of non-bloody emesis, made aware refer to MAR for medication administration. Pt placed in a clean gown and linens changed by this RN.
[2025-09-02] MEDS: SODIUM CHLORIDE 0.9% IV 1,000 ML 125 ML IV CONT ×3 (02:38→21:31)
--- NOTE | 2025-09-02 02:42 | WPCEDHO ---
ED Hand Off Checklist All vitals saved:yes IV Site documented:yes All med administrations documented:yes Triage Note Triage Note Pt AOx1 to ED via ambulance for 09/01/25 19:07 altered mental status, per EMS [place] and [facility] Pt endorses drug use today , unknown substance. Pt had 2 episodes of non-bloody emesis. Allergies No Known Allergies Allergy (Verified 08/19/25 11:27) Active Medications including assessments/comments Sodium Chloride (Normal Saline Iv) 1,000 mls @ 125 mls/hr IV CONT .Q8H DELMA Last Admin: 09/02/25 02:38 Dose: 125 mls/hr Documented By: SULEMAN Infusion/Titration Document 09/02/25 02:38 SULEMAN (Rec: 09/02/25 02:38 SULEMAN [id number]) Intake IV Site Peripheral Access Right Antecubital Container Volume 1,000 Waste Amount 0 Dosing Infusion Rate 125 Cumulative Dose Not Applicable Increase/Decrease Started Elapsed Time Elapsed Time ( 0m minutes) Ondansetron HCl (Ondansetron Inj 4 Mg/2 Ml Vial) 4 mg IV PUSH Q4H PRN PRN Reason: Nausea Last Admin: 09/02/25 02:00 Dose: 4 mg Documented By: SULEMAN Administered/Completed Medications Discontinued Medications Acetaminophen (Acetaminophen 500 Mg Tablet) 1,000 mg PO ONCE STA Stop: 09/01/25 19:18 Last Admin: 09/01/25 21:10 Dose: 1,000 mg Documented By: SULEMAN Sodium Chloride (Normal Saline Iv) 1,000 mls @ 999 mls/hr IV CONT .Q1H1M STA Stop: 09/01/25 20:21 Last Infusion: 09/01/25 22:30 Dose: Infused Documented By: Admin: 09/01/25 21:09 Dose: 999 mls/hr Documented By: SULEMAN Ceftriaxone Sodium 1 gm/ (Sodium Chloride) 50 mls @ 100 mls/hr IVPB ONCE STA Stop: 09/01/25 21:23 Last Infusion: 09/02/25 01:44 Dose: Infused Documented By: Admin: 09/02/25 00:17 Dose: 100 mls/hr Documented By: SULEMAN Sodium Chloride (Normal Saline Iv) 1,000 mls @ 999 mls/hr IV CONT .Q1H1M STA Stop: 09/01/25 23:21 Last Admin: 09/01/25 23:19 Dose: Not Given Documented By: SULEMAN Non-Admin Reason: Duplicate Dose Sodium Chloride (Normal Saline Iv) 1,000 mls @ 999 mls/hr IV CONT .Q1H1M STA Stop: 09/01/25 23:21 Last Infusion: 09/02/25 00:19 Dose: Infused Documented By: Admin: 09/01/25 23:19 Dose: 999 mls/hr Documented By: SULEMAN Ondansetron HCl (Ondansetron Inj 4 Mg/2 Ml Vial) 4 mg IV PUSH ONCE STA Stop: 09/01/25 19:18 Last Admin: 09/01/25 21:10 Dose: 4 mg Documented By: SULEMAN Sodium Chloride (Stat Bolus Communication Order) 2,000 ml IV CONT ONCE STA Stop: 09/01/25 19:51 Last Admin: 09/01/25 21:55 Dose: 1,000 ml Documented By: SULEMAN Comments: total fluids given 2,000 Thiamine HCl (Thiamine Hcl 200 Mg/2 Ml Vial) 100 mg IV PUSH ONCE STA Stop: 09/01/25 19:18 Last Admin: 09/01/25 21:13 Dose: 100 mg Documented By: SULEMAN Interventions/Assessments IV / Saline Lock, Insert Start: 09/01/25 19:00 Freq: Status: Active Protocol: Document 09/01/25 21:09 EZG (Rec: 09/01/25 21:10 ALDOG [id number]) IV Assessment Peripheral Access Right Antecubital IV Catheter Access Initiated IV Insertion Date 09/01/25 IV Insertion Time 21:09 Catheter Gauge 18 IV Site Assessment WNL IV Care and WNL Maintenance PA: Cardiovascular Assessment Start: 09/01/25 19:00 Freq: Status: Active Protocol: Document 09/01/25 21:25 EZG (Rec: 09/01/25 21:27 ALDOG [id number]) Cardiovascular Assessment Cardiovascular Diaphoresis Symptoms Skin Description Clammy Jugular Vein None Distention PA: Neurological Assessment Start: 09/01/25 19:00 Freq: Status: Active Protocol: Document 09/01/25 21:25 EZG (Rec: 09/01/25 21:27 ALDOG [id number]) Neurological Assessment Level of Drowsy Consciousness Arousable to Verbal Orientation Oriented to Person Neurological Nausea/Vomiting,Tremors Symptoms Hallucination Type None Behavior Restless,Withdrawn Patient Able to Comprehend Comprehension Memory Description Intact Prosper Coma Scale Eyes Open Verbal Disoriented Motor Follows Commands T[place] Coma Total 14 Score PA: Respiratory Assessment Start: 09/01/25 19:00 Freq: Status: Active Protocol: Document 09/01/25 21:25 EZG (Rec: 09/01/25 21:27 EZG [id number]) Respiratory Assessment Symptoms None Effort Normal Depth Normal Chest Expansion Symmetrical Cough Description None Oxygen Delivery Oxygen Delivery Room Air Pulse Oximetry (90- 100 100 %) Last Vital Signs Temperature 98.2 F 09/02/25 02:09 Pulse Rate 54 L 09/02/25 02:09 Respiratory Rate 24 H 09/02/25 02:09 Pulse Oximetry 99 09/02/25 02:09 Blood Pressure 108/97 H 09/02/25 02:09 Blood Pressure Mean 100 09/02/25 02:09 Blood Pressure Position Sitting 09/02/25 02:09 Oxygen Delivery Room Air 09/01/25 21:25 Weight 63.4 kg 09/01/25 22:14 Last Result - Abnormals Only WBC 10.7 K/mm3 (4.5-10.0) H 09/01/25 19:58 MCV 79.2 fl (80-100) L 09/01/25 19:58 MCH 23.9 pg (26-34) L 09/01/25 19:58 MCHC 30.2 g/dl (32-36) L 09/01/25 19:58 RDW 18.1 % (11.5-14.5) H 09/01/25 19:58 Plt Count 507 k/mm3 (150-375) H D 09/01/25 19:58 Immature Gran % (Auto) 0.7 % (0-0.5) H 09/01/25 19:58 Neut % (Auto) 82.5 % (45.5-73.1) H 09/01/25 19:58 Lymph % (Auto) 13.0 % (18.3-44.2) L 09/01/25 19:58 Abs Immat Gran (auto) 0.07 K/mm3 (0.00-0.031) H 09/01/25 19:58 Absolute Neuts (auto) 8.8 K/mm3 (1.3-6.7) H 09/01/25 19:58 PT 14.8 Seconds (11.1-14.7) H 09/01/25 19:58 VBG pH 7.438 (7.300-7.400) H* 09/01/25 19:59 VBG pCO2 36.3 mmHg (42.0-48.0) L 09/01/25 19:59 VBG pO2 < 27.0 mmHg (35.0-45.0) L 09/01/25 19:59 POC Capillary Glucose 107 mg/dl (65-105) H 09/01/25 19:17 AST 45 U/L (14-36) H 09/01/25 19:58 Ammonia < 9 umol/L (9-30) L 09/01/25 19:58 Total Protein 10.3 g/dL (6.3-8.2) H 09/01/25 19:58 Beta-Hydroxybutyrate/Acetoacetate 0.69 mmol/L (0.02-0.27) H 09/01/25 19:58 TSH 0.384 uIU/mL (0.465-4.680) L 09/01/25 19:58 TSH (Reflex) 0.414 uIU/mL (0.465-4.68) L 09/01/25 19:58 Urine Protein 1+ mg/dL (Negative) H 09/01/25 22:35 Urine Ketones 1+ mg/dL (Negative) H 09/01/25 22:35 Urine Bilirubin 1+ (Negative) H 09/01/25 22:35 Leukocyte Esterase Rfl 2+ CAMELIA/UL (Negative) H 09/01/25 22:35 Urine WBC 21-50 /hpf (0-3) H 09/01/25 22:35 Salicylates < 1.0 mg/dL (2-20) L 09/01/25 19:58 Acetaminophen < 10 ug/mL (10-30) L 09/01/25 19:58 U Benzodiazepines Scrn Positive (Negative) A 09/01/25 22:35 U Cannabinoids Screen Positive (Negative) A 09/01/25 22:35
--- NOTE | 2025-09-02 03:35 | ADMGEN ---
This patient, Marg[address] Way, was admitted to 3 [facility] Room 325-02. Patient/family oriented to hospital policies and general routines including ID bracelet, bed and alarms, visiting hours, pain management, procedures, bathroom and other care routines, personal items, smoking policy, room service/diet, and visiting hours. Information on how to activate the Rapid Response Team has been discussed. Patient/Family are encouraged to report perceived risks to care and to ask questions if they do not understand what they are told or what they should do.
--- NOTE | 2025-09-02 03:45 | PC.NURSE ---
Attempted to reach out to spouse via provided phone number. No voicemail set up. Patient is unable to focus long enough to provide any kind of answers to questions, except to answer her height, and to realize she was in a different room. Did find paperwork from [facility] for next court date and phone. Believe patient is having absence seizures. Patient is having fluttering eyelids particularly with the fluorescent lights on.
[2025-09-02 06:50] LABS: Hematocrit 37.1 % (37.0-47.0); Hemoglobin 11.1 g/dL (12.0-15.0); Mean Corpuscular HGB Conc 29.9 g/dl (32-36); Mean Corpuscular Hemoglobin 23.9 pg (26-34); Mean Corpuscular Volume 79.8 fl (80-100); Platelet Count Result 436 k/mm3 (150-375); Red Blood Count 4.65 M/mm3 (4.2-5.4); White Blood Count 11.7 K/mm3 (4.5-10.0)
[2025-09-02 06:57] LABS: Anion Gap 9 mmol/L (4-12); Blood Urea Nitrogen 10 mg/dL (7-17); Calcium 9.2 mg/dL (8.4-10.2); Carbon Dioxide 24 mmol/L (22-30); Chloride 109 mmol/L (98-107); Estimated CRCL calculation 107 ml/min; Estimated Glomerular Filt Rate > 60; Glucose 87 mg/dL (65-110); Potassium 3.5 mmol/L (3.4-5.0); Sodium 142 mmol/L (137-145)
--- NOTE | 2025-09-02 09:18 | PM.IMHP2 ---
H&P: HPI History of Present Illness Date/Time: 09/02/25 09:18 Chief Complaint: Altered Mental Status Narrative: Patient is a 25 yo F presenting to the ED via EMS being found at a bus stop and confused, reportedly released from [facility] today, admitted to drug use, unknown drugs, reportedly recently delivered a child in the recent past, vomiting. Unable to obtain history from pt due to AMS; patient could barely stay awake to answer questions. Patient has a history of seizures but denies being compliant with medication, nor does she knows what medication she takes. Patient reports using substances but does not state what kind. Review of Systems Review of Systems: All systems reviewed & are unremarkable except as noted in HPI and below (Patient reports yellow emesis) Constitutional: Constitutional: Denies no additional constitutional complaints and Denies body ache(s) Eyes: Eyes: Denies no additional eye complaints Cardiovascular: Cardiovascular: Denies no additional cardiovascular complaints, Denies chest pain, Denies diaphoresis, Denies lightheadedness and Denies palpitations Respiratory: Respiratory: Denies no additional respiratory complaints, Denies chest congestion, Denies hemoptysis and Denies dyspnea Gastrointestinal: Gastrointestinal: Denies no additional gastrointestinal complaints, Denies abdominal pain, Denies melena and Denies bloating Musculoskeletal: Musculoskeletal: Denies arthralgias Neurologic: Reports system reviewed and no additional complaints, except as documented and Reports as per HPI PMFSH Past Medical History Medical History Seizure Oppositional defiant disorder Seizure disorder (04/29/14) Hx of shoulder dystocia in prior , currently Smoker Overweight (BMI 25.0-29.9) and not yet delivered Surgical History Surgical History No pertinent past surgical history Social History Social History Smoking status: Current every day smoker Tobacco type: e-cigarettes/vaping Alcohol intake: unknown Substance use: unknown Other substance usage details: DRUG SCREEN POSITIVE FOR BENZO AND MARIJUANA Lack of Transportation: No Lack of Food: Never True Current Housing: I Have Housing Concerned About Future Housing: No Difficulty Paying Gas/Electric Bills: No Difficulty Paying for Meds: No Currently Unemployed: No Education: High School Diploma/GED Difficulty w/ Childcare or Family Care: No Spiritual care concerns: No Meds Home Medications and Allergies Home Medications ?Medication ?Instructions ?Recorded ?Confirmed ?Type No Home Medications 02/07/22 09/02/25 History ibuprofen 600 mg tablet 600 mg PO Q6H PRN Cramping #30 tabs 05/17/25 Rx sertraline 50 mg tablet (Zoloft) 50 mg PO QAM #60 tabs 05/17/25 Rx cefdinir 300 mg capsule 300 mg PO Q12H 10 days #20 caps 07/08/25 Rx Allergies Allergy/AdvReac Type Severity Reaction Status Date / Time No Known Allergies Allergy Verified 09/02/25 03:36 Vital Signs Vital Signs - 24 hr 09/01/25 19:07 09/01/25 21:25 09/02/25 02:09 Temperature 100.4 F H 98.2 F Pulse Rate 61 54 L Respiratory Rate 14 24 H Blood Pressure 124/84 108/97 H Pulse Oximetry 98 100 99 Oxygen Delivery Room Air Room Air 09/02/25 03:41 09/02/25 04:00 09/02/25 06:00 Temperature 99.0 F Pulse Rate 54 L 62 80 Respiratory Rate 24 H 20 Blood Pressure 133/71 Pulse Oximetry 99 98 Oxygen Delivery Room Air Exam Const: General: no acute distress Eyes: Pupils: Equal, round and reactive pupils present Resp: Effort & Inspection: normal respiratory effort Cardio: Rate: regular rate Rhythm: regular rhythm GI: GI Palp: Yes Soft to palpation Auscultation: normal bowel sounds : General: Yes bladder normal to palpation and Yes no CVA tenderness Neuro: Speech: normal speech Motor exam (neuro): 5/5 motor strength present throughout Sensory Exam: normal sensation Other: Patient states she knows where she is at and what year it is. Patient denies knowing what brought her to the hospital. Results Labs Labs: Short CBC 09/01/25 09/02/25 Range/Units 19:58 06:27 WBC 10.7 H 11.7 H (4.5-10.0) K/mm3 Hgb 12.1 11.1 L (12.0-15.0) g/dL Hct 40.1 37.1 (37.0-47.0) % Plt Count 507 H D 436 H (150-375) k/mm3 BMP 09/01/25 09/02/25 19:58 06:27 Sodium 142 142 Potassium 3.7 3.5 Chloride 105 109 H Carbon Dioxide 26 24 BUN 12 D 10 Creatinine 0.73 0.63 L Glucose 104 87 Calcium 10.1 9.2 Cardiac Enzymes 09/01/25 Range/Units 19:58 Total Creatine Kinase 54 (30-135) U/L Troponin I < 0.012 (0.000-0.034) ng/mL Liver Function 09/01/25 Range/Units 19:58 Total Bilirubin 0.7 (0.2-1.3) mg/dL AST 45 H (14-36) U/L ALT 23 (6-35) U/L Alkaline Phosphatase 77 (38-126) U/L Albumin 4.9 (3.5-5.1) g/dL Urine 09/01/25 Range/Units 22:35 Urine Color Dark yellow (Yellow) Urine Appearance Clear (Clear) Urine pH 6.5 (5.0-9.0) Ur Specific [place] 1.031 (1.001-1.035) Urine Protein 1+ H (Negative) mg/dL Urine Glucose (UA) Negative (Negative) mg/dL Quality VTE Prophylaxis VTE prophylaxis: mechanical ordered Assessment and Plan Assessment and plan (1) Pyelonephritis: Code(s): N12 - Tubulo-interstitial nephritis, not specified as acute or chronic Status: Acute Assessment and Plan: UA positive for WBC and Leukocyte, UC pending Ceftriaxone continued from ED 09/02 (2) Sepsis: Code(s): A41.9 - Sepsis, unspecified organism Status: Acute Assessment and Plan: Patient presented with temp of 100.4 (09/02 resolved) Ceftriaxone continued from ED 09/02 VSS Continue with daily labs (3) Seizure: Code(s): R56.9 - Unspecified convulsions Status: Acute Assessment and Plan: Patient has a hx of seizure 2013 Patient is non-compliant with medication and does not know the name of the medication she was prescribed Per nursing, may have had seizure overnight? No seizure activity noted, seizure precautions placed Loading dose of Keppra ordered inpt Neurology Consult, pending recs EEG pending Plan Continue IV abx, pending EEG, UC, and neuro consult Prior Studies I have reviewed the following patient records and this information was taken into consideration when formulating the assessment and plan.: previous labs and previous ER visits
[2025-09-02] MEDS: levETIRAcetam 1000MG/NACL100ML 1,000 MG/100 ML BAG 400 MG IVPB ×3 (12:12→21:31)
--- NOTE | 2025-09-02 12:33 | P.CONNEU_ITS ---
Assessment and Plan Assessment and plan (1) Seizure: Code(s): R56.9 - Unspecified convulsions Status: Acute Plan 1. Possible postictal state with unwitnessed seizure 2. Underlying behavior problem as outlined. 3. Will benefit from the EEG she already had a negative CT scan of the head. 4. She is to continue on Keppra 750mg q.12 hours up until the EEG is performed while she is in the hospital we should have seizure precautions. Consult date: 09/02/25 HPI: Margaret Way is a 25 year old femaleAdmitted to the hospital through the emergency room where she was brought by the EMS with information as she was found at a bus stop confused and with the information that she was recently released from [facility] today , Where she was admitted for drug use. Patient has recently delivered a child and was not able to answer any questions though she was following basic commands. No home medications were listed. She was not documented to be allergic to any medications. She has ongoing history of 1. Seizure disorder 2. behavior disorder 3. Currently everyday smoker. Initial exam in the emergency room was grossly nonfocal. Vital signs were with temperature of 100.4? otherwise normal. neuro consult obtained for the possibility of seizure, Review of Systems 2 Review of Systems: All systems reviewed & are unremarkable except as noted in HPI and below PMFSH Past Medical History Medical History Seizure Oppositional defiant disorder Seizure disorder (04/29/14) Hx of shoulder dystocia in prior , currently Smoker Overweight (BMI 25.0-29.9) and not yet delivered Surgical History Surgical History No pertinent past surgical history Social History Social History Smoking status: Current every day smoker Tobacco type: e-cigarettes/vaping Alcohol intake: unknown Substance use: unknown Other substance usage details: DRUG SCREEN POSITIVE FOR BENZO AND MARIJUANA Lack of Transportation: No Lack of Food: Never True Current Housing: I Have Housing Concerned About Future Housing: No Difficulty Paying Gas/Electric Bills: No Difficulty Paying for Meds: No Currently Unemployed: No Education: High School Diploma/GED Difficulty w/ Childcare or Family Care: No Spiritual care concerns: No Meds Home Medications and Allergies Home Medications ?Medication ?Instructions ?Recorded ?Confirmed ?Type No Home Medications 02/07/22 09/02/25 H istory ibuprofen 600 mg tablet 600 mg PO Q6H PRN Cramping # 30 tabs 05/17/25 Rx sertraline 50 mg tablet (Zoloft) 50 mg PO QAM #60 tabs 05/17/25 Rx cefdinir 300 mg capsule 300 mg PO Q12H 10 days #20 c aps 07/08/25 Rx Allergies Allergy/AdvReac Type Severity Reaction Status Date / Time No Known Allergies Allergy Verified 09/02/25 03:36 Vital Signs Vital Signs - 24 hr 09/01/25 19:07 09/01/25 21:25 09/02/25 02:09 Temperature 38.0 C H 36.8 C Pulse Rate 61 54 L Respiratory Rate 14 24 H Blood Pressure 124/84 108/97 H Pulse Oximetry 98 100 99 Oxygen Delivery Room Air Room Air 09/02/25 03:41 09/02/25 04:00 09/02/25 06:00 Temperature 37.2 C Pulse Rate 54 L 62 80 Respiratory Rate 24 H 20 Blood Pressure 133/71 Pulse Oximetry 99 98 Oxygen Delivery Room Air 09/02/25 08:00 09/02/25 08:00 Temperature Pulse Rate 80 54 L Respiratory Rate 20 Blood Pressure Pulse Oximetry 98 Oxygen Delivery Room Air Exam 2 Narrative: exam today revealed her to be arousable and able to follow the verbal commands though with no spontaneous speech and somewhat reluctant to carry out a conversation. Head normocephalic with no bruit, ear nose throat examination normal, neck supple with no cervical bruit no thyromegaly no lymphadenopathy, heart regular, lungs clear to auscultation, abdomen is soft nontender with normal bowel sounds, neurologically she is awake easily arousable follow the verbal instruction, she did not communicate with the examiner verbally but followed all the instructions appropriately, pupils round regular, wilson of vision full in all 4 quadrants to threat stimuli, extraocular movements full in the horizontal gaze without any nystagmus, and no spontaneous nystagmus, face symmetrical, in the oral cavity, motor examination revealed her to have ability to move both upper and lower extremities, and the tone is normal on passive movements of the upper and lower extremities, reflexes are sluggish but symmetrical, plantar responses are downgoing, there is no evidence of cerebellar dysfunction when she moved her upper extremities. Results Labs 09/02/25 06:27 09/02/25 06:27 Labs: Short CBC 09/01/25 09/02/25 Range/Units 19:58 06:27 WBC 10.7 H 11.7 H (4.5-10.0) K/mm3 Hgb 12.1 11.1 L (12.0-15.0) g/dL Hct 40.1 37.1 (37.0-47.0) % Plt Count 507 H D 436 H (150-375) k/mm3 BMP 09/01/25 09/02/25 19:58 06:27 Sodium 142 142 Potassium 3.7 3.5 Chloride 105 109 H Carbon Dioxide 26 24 BUN 12 D 10 Creatinine 0.73 0.63 L Glucose 104 87 Calcium 10.1 9.2 Cardiac Enzymes 09/01/25 Range/Units 19:58 Total Creatine Kinase 54 (30-135) U/L Troponin I < 0.012 (0.000-0.034) ng/mL Liver Function 09/01/25 Range/Units 19:58 Total Bilirubin 0.7 (0.2-1.3) mg/dL AST 45 H (14-36) U/L ALT 23 (6-35) U/L Alkaline Phosphatase 77 (38-126) U/L Albumin 4.9 (3.5-5.1) g/dL Urine 09/01/25 Range/Units 22:35 Urine Color Dark yellow (Yellow) Urine Appearance Clear (Clear) Urine pH 6.5 (5.0-9.0) Ur Specific [place] 1.031 (1.001-1.035) Urine Protein 1+ H (Negative) mg/dL Urine Glucose (UA) Negative (Negative) mg/dL
[2025-09-02] MEDS: cefTRIAXone 2 GM in SODIUM CHLORIDE 0.9% IV 100 ML 200 ML IVPB (17:51)
[2025-09-03] VITALS (9 sets, daily range): BP systolic 152–153; BP diastolic 87–99; PULSE 50–71; RESP 17–18; TEMP 36.6–36.8; O2SAT 99–100
[2025-09-03] MEDS: ONDANSETRON INJ 4 MG/2 ML VIAL IV PUSH ×2 (02:25→22:19)
[2025-09-03] MEDS: ACETAMINOPHEN 325 MG TABLET 650 MG PO ×3 (03:54→22:19)
[2025-09-03] MEDS: levETIRAcetam 1000MG/NACL100ML 1,000 MG/100 ML BAG 400 MG IVPB ×3 (05:41→22:21)
[2025-09-03 06:18] LABS: Hematocrit 37.2 % (37.0-47.0); Hemoglobin 11.0 g/dL (12.0-15.0); Mean Corpuscular HGB Conc 29.6 g/dl (32-36); Mean Corpuscular Hemoglobin 23.8 pg (26-34); Mean Corpuscular Volume 80.5 fl (80-100); Platelet Count Result 404 k/mm3 (150-375); Red Blood Count 4.62 M/mm3 (4.2-5.4); White Blood Count 12.7 K/mm3 (4.5-10.0)
[2025-09-03] MEDS: SODIUM CHLORIDE 0.9% IV 1,000 ML 125 ML IV CONT ×3 (06:24→22:18)
[2025-09-03 06:39] LABS: Anion Gap 10 mmol/L (4-12); Blood Urea Nitrogen 11 mg/dL (7-17); Calcium 9.0 mg/dL (8.4-10.2); Carbon Dioxide 22 mmol/L (22-30); Chloride 106 mmol/L (98-107); Estimated CRCL calculation 122 ml/min; Estimated Glomerular Filt Rate > 60; Glucose 75 mg/dL (65-110); Potassium 3.2 mmol/L (3.4-5.0); Sodium 138 mmol/L (137-145)
[2025-09-03] MEDS: POTASSIUM CHLORIDE 20 MEQ PACKET (FOR LIQUID) 40 MEQ PO (08:56)
--- NOTE | 2025-09-03 09:04 | PM.IMPN2 ---
Assessment and Plan Assessment and Plan (1) Pyelonephritis: Code(s): N12 - Tubulo-interstitial nephritis, not specified as acute or chronic Status: Acute Assessment and Plan: UA positive for WBC and Leukocyte, UC pending Ceftriaxone continued continue to monitor (2) Sepsis: Code(s): A41.9 - Sepsis, unspecified organism Status: Acute Assessment and Plan: Patient had a temp of 100.4 WBC elevated 12.7 SIRS criteria meet see above (3) Polysubstance abuse: Code(s): F19.10 - Other psychoactive substance abuse, uncomplicated Status: Acute Assessment and Plan: Patient admits to Fentanyl use Positive for Benzo and THC Last usuage over a week No withdrawl symptoms Contiue to monitor (4) Seizure: Code(s): R56.9 - Unspecified convulsions Status: Acute Assessment and Plan: Patient has a hx of seizure 2013 Patient is non-compliant with medication and does not know the name of the medication she was prescribed Per nursing, may have had seizure overnight? No seizure activity noted, seizure precautions placed Loading dose of Keppra ordered inpt Neurology Consult- Keppra 750 mg Q12 (completed) 09/03 neurology consulted- patient is on IV Keppra, following neurology recommendation Neurological assessment EEG completed on 09/02-IMPRESSION Abnormal record due to presence of bihemispheric theta and delta activity with intermittent sharp wave component. These findings suggestive of ongoing seizure. Clinical correlation recommended. Plan Continue IV abx, IV Keppra, pending UC Subjective Date/time seen: 09/03/25 09:04 Interval history: 25 year old female patient with no past medical history as reported by patient. Patient was brought in via EMS through the ED and than transferred to inpatient status due to altered mental status. 09/03 She does not take any home medications. Patient admits to use of fentanyl 30-40 pills daily for over a year. She reported her last usage was last before going to senior care.She denies withdrawal symptoms. Patient denies fever, chills, pain, diarrhea, tremors, and nausea. Patient does report vomiting twice throughout the night but has since had no issues. Patient has been able to keep down food and liquids. Patient reports one episode of a headache. When asked about a history of seizure she denies, but does report her boyfriend seen her sticking her tongue out and biting down on it yesterday. She does not recall the event herself. She denies seeing flashes of lights, visual changes, racing thoughts, depression or anxiety.Overall the patient states she is feeling better than when she first arrived. Review of Systems Review of Systems: All systems reviewed & are unremarkable except as noted in HPI and below Exam Const: General: comfortable and no acute distress Eyes: General: appearance normal, both eyes and all related structures Pupils: Equal, round and reactive pupils present Neck: Neck: supple Thyroid: thyroid normal Resp: Effort & Inspection: normal respiratory effort Auscultation: clear to auscultation bilaterally Cardio: Rate: regular rate Rhythm: regular rhythm GI: GI Palp: Yes Soft to palpation Auscultation: normal bowel sounds Skin: General skin exam: normal color Neuro: General: gait normal and deep tendon reflexes 2+ bilaterally Speech: normal speech Motor exam (neuro): 5/5 motor strength present throughout and Normal motor muscle tone present throughout Psych: Affect: normal affect Objective Data Vital Signs Vital Signs: Vital Signs - 24 hr 09/02/25 12:00 09/02/25 14:00 09/02/25 16:00 Temperature 98.7 F Pulse Rate 58 L 55 L 53 L Respiratory Rate 16 Blood Pressure 148/101 H Pulse Oximetry 99 Oxygen Delivery 09/02/25 19:36 09/02/25 20:00 09/02/25 20:00 Temperature 98.3 F Pulse Rate 64 64 53 L Respiratory Rate 17 17 Blood Pressure 141/79 H Pulse Oximetry 98 98 Oxygen Delivery Room Air 09/03/25 00:00 09/03/25 04:00 09/03/25 04:19 Temperature 97.8 F Pulse Rate 67 57 L 50 L Respiratory Rate 17 Blood Pressure 152/87 H Pulse Oximetry 100 Oxygen Delivery Intake/Output Intake/Output: Intake & Output 08/31/25 09/01/25 09/02/25 09/03/25 23:59 23:59 23:59 23:59 Intake Total 1000 3940 1320 Output Total 1300 300 Balance 1000 2640 1020 Meds/Results Medications: Active Medications Generic Name Dose Route Start Last Admin Trade Name Freq PRN Reason Stop Dose Admin Acetaminophen 650 mg 09/03/25 03:10 09/03/25 03:54 Acetaminophen 325 Mg Tablet PO 650 mg Q4H PRN Administration Headache Sodium Chloride 1,000 mls @ 125 mls/hr 09/02/25 01:35 09/03/25 06:24 Normal Saline Iv IV CONT 125 mls/hr .Q8H DELMA Administration Levetiracetam 1,000 mg in 100 mls @ 400 mls/hr 09/02/25 22:00 09/03/25 05:56 Keppra Iv IVPB Infused Q8HR DELMA Infusion Ceftriaxone Sodium 2 gm/ 100 mls @ 200 mls/hr 09/02/25 17:00 09/02/25 18:21 Sodium Chloride IVPB Infused Q24H DELMA Infusion Ondansetron HCl 4 mg 09/02/25 01:34 09/03/25 02:25 Ondansetron Inj 4 Mg/2 Ml Vial IV PUSH 4 mg Q4H PRN Administration Nausea Potassium Chloride 40 meq 09/03/25 09:00 09/03/25 08:56 Potassium Chloride 20 Meq Packet (For Liquid) PO 40 meq DAILY DELMA Administration Radiology Results: ITS Impressions Chest X-Ray 09/01/25 21:14 IMPRESSION: No acute pulmonary findings. Head CT 09/02/25 06:42 IMPRESSION: 1. No acute intracranial findings. Chest/Abdomen/Pelvis CT 09/02/25 07:59 IMPRESSION: 1. Right-sided acute pyelonephritis. Labs Labs: Laboratory Results - last 24 hr 09/03/25 06:08 WBC 12.7 H RBC 4.62 Hgb 11.0 L Hct 37.2 MCV 80.5 MCH 23.8 L MCHC 29.6 L RDW 17.3 H Plt Count 404 H MPV 9.9 Sodium 138 Potassium 3.2 L Chloride 106 Carbon Dioxide 22 Anion Gap 10 BUN 11 Creatinine 0.61 L Estim Creat Clear Calc 122 Estimated GFR > 60 Glucose 75 Calcium 9.0 Quality VTE Prophylaxis VTE prophylaxis: mechanical ordered
--- NOTE | 2025-09-03 10:09 | P.NEURO_ITS ---
Neurology EEG Report General Information Date of Study: 09/02/25 TEST EEG DIAGNOSIS Seizures CONDITION OF RECORDING awake and drowsy. EEG NUMBER [id number] CLINICAL HISTORY 25 years old female was found confused at a bus stop after being released from [facility]. 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 Patient has recently had a baby back in May. Patient had consistent facial jerking eyes fluttering nostrils FLAIR and lipsquivering around the toes tapping. Patient eyes dilated. Patient follows the commands but sleeping and does not remember certain questions and commands even minute eyes are open. Patient handed throwing up Mitten test. EEG DESCRIPTION Whole record consists of medium to high voltage 4 to 5 hertz per 2nd delta and theta activity admixed with multiple movement artifacts throughout the tracing. Photic stimulation not done. Hyperventilation not done. IMPRESSION Abnormal record due to presence of bihemispheric theta and delta activity with intermittent sharp wave component. These findings suggestive of ongoing seizure. Clinical correlation recommended.
--- NOTE | 2025-09-03 12:56 | WPDNEUROPN ---
Subjective Date/time seen: 09/03/25 12:56 Interval history: 25 years old right-handed female seen initially yesterday in postictal state with history of ongoing seizures for which she was continued on Keppra, EEG was definitely very abnormal. At this stage she is awake alert able to follow the verbal commands appropriately and moving upper and lower extremities very well. Will obtain the repeat EEG and also an MRI of the brain for further recommendations. Objective Data Vital Signs Vital Signs: Vital Signs - 24 hr 09/02/25 14:00 09/02/25 16:00 09/02/25 19:36 Temperature 37.1 C 36.8 C Pulse Rate 55 L 53 L 64 Respiratory Rate 16 17 Blood Pressure 148/101 H 141/79 H Pulse Oximetry 99 98 Oxygen Delivery 09/02/25 20:00 09/02/25 20:00 09/03/25 00:00 Temperature Pulse Rate 64 53 L 67 Respiratory Rate 17 Blood Pressure Pulse Oximetry 98 Oxygen Delivery Room Air 09/03/25 04:00 09/03/25 04:19 Temperature 36.6 C Pulse Rate 57 L 50 L Respiratory Rate 17 Blood Pressure 152/87 H Pulse Oximetry 100 Oxygen Delivery Intake/Output Intake/Output: Intake & Output 08/31/25 09/01/25 09/02/25 09/03/25 23:59 23:59 23:59 23:59 Intake Total 1000 3940 1320 Output Total 1300 300 Balance 1000 2640 1020 Meds/Results Medications: Active Medications Generic Name Dose Route Start Last Admin Trade Name Freq PRN Reason Stop Dose Admin Acetaminophen 650 mg 09/03/25 03:10 09/03/25 03:54 Acetaminophen 325 Mg Tablet PO 650 mg Q4H PRN Administration Headache Sodium Chloride 1,000 mls @ 125 mls/hr 09/02/25 01:35 09/03/25 06:24 Normal Saline Iv IV CONT 125 mls/hr .Q8H DELMA Administration Levetiracetam 1,000 mg in 100 mls @ 400 mls/hr 09/02/25 22:00 09/03/25 05:56 Keppra Iv IVPB Infused Q8HR DELMA Infusion Ceftriaxone Sodium 2 gm/ 100 mls @ 200 mls/hr 09/02/25 17:00 09/02/25 18:21 Sodium Chloride IVPB Infused Q24H DELMA Infusion Ondansetron HCl 4 mg 09/02/25 01:34 09/03/25 02:25 Ondansetron Inj 4 Mg/2 Ml Vial IV PUSH 4 mg Q4H PRN Administration Nausea Potassium Chloride 40 meq 09/03/25 09:00 09/03/25 08:56 Potassium Chloride 20 Meq Packet (For Liquid) PO 40 meq DAILY DELMA Administration Radiology Results: ITS Impressions Chest X-Ray 09/01/25 21:14 IMPRESSION: No acute pulmonary findings. Head CT 09/02/25 06:42 IMPRESSION: 1. No acute intracranial findings. Chest/Abdomen/Pelvis CT 09/02/25 07:59 IMPRESSION: 1. Right-sided acute pyelonephritis. Labs Labs: Laboratory Results - last 24 hr 09/03/25 06:08 WBC 12.7 H RBC 4.62 Hgb 11.0 L Hct 37.2 MCV 80.5 MCH 23.8 L MCHC 29.6 L RDW 17.3 H Plt Count 404 H MPV 9.9 Sodium 138 Potassium 3.2 L Chloride 106 Carbon Dioxide 22 Anion Gap 10 BUN 11 Creatinine 0.61 L Estim Creat Clear Calc 122 Estimated GFR > 60 Glucose 75 Calcium 9.0
[2025-09-03] MEDS: cefTRIAXone 2 GM in SODIUM CHLORIDE 0.9% IV 100 ML 200 ML IVPB (16:14)
[2025-09-04] VITALS (9 sets, daily range): BP systolic 128–148; BP diastolic 84–97; PULSE 59–83; RESP 16–18; TEMP 36.5–36.8; O2SAT 97–100
[2025-09-04 01:07] LABS: Osmolality, Serum 297 mOsmol/kg (275-295)
[2025-09-04] MEDS: SODIUM CHLORIDE 0.9% IV 1,000 ML 125 ML IV CONT (05:16)
[2025-09-04] MEDS: levETIRAcetam 1000MG/NACL100ML 1,000 MG/100 ML BAG 400 MG IVPB ×3 (05:16→21:04)
[2025-09-04 06:25] LABS: Hematocrit 38.4 % (37.0-47.0); Hemoglobin 11.6 g/dL (12.0-15.0); Mean Corpuscular HGB Conc 30.2 g/dl (32-36); Mean Corpuscular Hemoglobin 23.7 pg (26-34); Mean Corpuscular Volume 78.4 fl (80-100); Platelet Count Result 379 k/mm3 (150-375); Red Blood Count 4.90 M/mm3 (4.2-5.4); White Blood Count 9.5 K/mm3 (4.5-10.0)
[2025-09-04 06:38] LABS: Anion Gap 8 mmol/L (4-12); Blood Urea Nitrogen 8 mg/dL (7-17); Calcium 8.8 mg/dL (8.4-10.2); Carbon Dioxide 19 mmol/L (22-30); Chloride 108 mmol/L (98-107); Estimated CRCL calculation 126 ml/min; Estimated Glomerular Filt Rate > 60; Glucose 79 mg/dL (65-110); Potassium 3.4 mmol/L (3.4-5.0); Sodium 135 mmol/L (137-145)
[2025-09-04] MEDS: POTASSIUM CHLORIDE 20 MEQ PACKET (FOR LIQUID) 40 MEQ PO (08:22)
[2025-09-04] MEDS: ACETAMINOPHEN 325 MG TABLET 650 MG PO (08:25)
--- NOTE | 2025-09-04 19:10 | P.PNIM_ITS ---
Assessment and Plan Assessment and Plan (1) Sepsis: Code(s): A41.9 - Sepsis, unspecified organism Status: Acute Assessment and Plan: Patient had a temp of 100.4, WBC elevated 12.7, AMS, and tachycardia with po ssible UTI. Infection vs seizure. Patient seen in ER 07/2025 and had UTI and bacteremia with ECOLI left AMA and never picked up her ABX or treated infection. * Oral Augmentin Q8hr * blood cultures pending * UA pending (2) Pyelonephritis: Code(s): N12 - Tubulo-interstitial nephritis, not specified as acute or chronic Status: Acute Assessment and Plan: CT ABD showing right sided pyelonephritis, UA with no growth but recent ECOLI UTI left untreated 07/2025 with bacteremia * IV fluids * transitioned IV ceftriaxone to Oral Augmentin (3) Polysubstance abuse: Code(s): F19.10 - Other psychoactive substance abuse, uncomplicated Status: Acute Assessment and Plan: Patient admits to Fentanyl use, Positive for Benzo and THC last use one week ago * no Current W/D symptoms * CC provide resources for rehab * encourage immediate cessation (4) Seizure: Code(s): R56.9 - Unspecified convulsions Status: Acute Assessment and Plan: Patient has a hx of seizure 2013, Patient is non-compliant with medication and does not know the name of the medication she was prescribed EEG completed on 09/02-IMPRESSION Abnormal record due to presence of bihemispheric theta and delta activity with intermittent sharp wave component. These findings suggestive of ongoing seizure * Neurology Consulted * Keppra 1000 mg Q8 * Seizure precautions * MR brain with no acute abnormality (5) Arrhythmia: Code(s): I49.9 - Cardiac arrhythmia, unspecified Status: Acute Assessment and Plan: Patient with arrhythmia's with SB to tachy with ambulation. Recent untreated bacteremia ECOLI * tele monitoring * echo pending to ensure no vegetation but low probability with gram negative Plan Code status: Full code per patient DVT prophylaxis: Ambulatory Stress ulcer prophylaxis: NA PT/OT notes: NA Disposition: Patient continues admission to the medical unit for further evaluation and treatment of pyelonephritis, of arrhythmias and seizure activity. Neurology has been consulted and is following MRI pending as well as echocardiogram for patient's arrhythmias. Medical Record Review I have reviewed the following patient records and this information was taken into consideration when formulating the assessment and plan.: previous labs, previous ER visits and previous hospitalizations Time Spent With Patient Time with patient: 15 - 25 minutes Subjective Date/time seen: 09/04/25 19:10 Interval history: 25 year old female patient with no past medical history as reported by patient. Patient was brought in via EMS through the ED and than transferred to inpatient status due to altered mental status. 09/04/2025: Assumed Care Patient with no seizure activity overnight, she did state palpitations with ambulation HR increases 130-160's with activity or ambulation. Patient denied any fevers, chills, CP, or SOB. Did report poor appetiate. Review of Systems Review of Systems: All systems reviewed & are unremarkable except as noted in HPI and below Exam Const: General: comfortable and no acute distress HENMT: Mouth: Yes moist mucous membranes Eyes: General: appearance normal, both eyes and all related structures Pupils: Equal, round and reactive pupils present Neck: Neck: supple Resp: Effort & Inspection: normal respiratory effort Auscultation: clear to auscultation bilaterally Cardio: Rate: tachycardic Rhythm: abnormal rhythm Other: Patient with arrythmias and tachycardia with activity GI: GI Palp: Yes Soft to palpation Auscultation: normal bowel sounds Back/Spine/Pelvis: Back: no CVA tenderness Skin: General skin exam: normal color Wounds: no wounds Neuro: General: gait normal and deep tendon reflexes 2+ bilaterally Cranial nerves: Yes Equal, round and reactive pupils present Speech: normal speech Motor exam (neuro): 5/5 motor strength present throughout and Normal motor muscle tone present throughout Sensory Exam: normal sensation Other: Patient states she knows where she is at and what year it is. Patient denies knowing what brought her to the hospital. Extrem: General: normal to inspection Psych: Mental Status: mental status grossly normal Affect: Sad affect present Other: Quiet withdrawn Objective Data Vital Signs Vital Signs: Vital Signs - 24 hr 09/03/25 20:00 09/03/25 20:50 09/04/25 00:00 Temperature 98.3 F Pulse Rate 60 56 L 83 Respiratory Rate 17 Blood Pressure 153/99 H Pulse Oximetry 99 Oxygen Delivery 09/04/25 04:00 09/04/25 04:57 09/04/25 08:00 Temperature 97.7 F Pulse Rate 59 L 64 Respiratory Rate 18 Blood Pressure 128/84 Pulse Oximetry 99 Oxygen Delivery Room Air 09/04/25 08:00 09/04/25 12:00 09/04/25 14:00 Temperature 97.9 F Pulse Rate 75 72 67 Respiratory Rate 16 Blood Pressure 148/97 H Pulse Oximetry 100 Oxygen Delivery 09/04/25 16:00 Temperature Pulse Rate 64 Respiratory Rate Blood Pressure Pulse Oximetry Oxygen Delivery Intake/Output Intake/Output: Intake & Output 09/01/25 09/02/25 09/03/25 12/04/25 23:59 23:59 23:59 23:59 Intake Total 1000 3940 3542.1 1338.8 Output Total 1300 300 500 Balance 1000 2640 3242.1 838.8 Meds/Results Medications: Active Medications Generic Name Dose Route Start Last Admin Trade Name Freq PRN Reason Stop Dose Admin Acetaminophen 650 mg 09/03/25 03:10 09/04/25 08:25 Acetaminophen 325 Mg Tablet PO 650 mg Q4H PRN Administration Headache Amoxicillin/Clavulanate Potassium 1 tablet 09/04/25 22:00 Amoxicillin/Clavulanate K 875-125 Mg Tab PO 09/09/25 06:01 Q8HR DELMA Levetiracetam 1,000 mg in 100 mls @ 400 mls/hr 09/02/25 22:00 09/04/25 13:58 Keppra Iv IVPB Infused Q8HR DELMA Infusion Ondansetron HCl 4 mg 09/02/25 01:34 09/03/25 22:19 Ondansetron Inj 4 Mg/2 Ml Vial IV PUSH 4 mg Q4H PRN Administration Nausea Perflutren Lipid Microsphere 0 ml 09/04/25 13:56 Perflutren Lipid Microspheres 1.5 Ml Vial Diluted To 10 Ml Total Volume IV PUSH 09/07/25 13:56 ONCE PRN adequate visualization Protocol Potassium Chloride 40 meq 09/03/25 09:00 09/04/25 08:22 Potassium Chloride 20 Meq Packet (For Liquid) PO 40 meq DAILY DELMA Administration Radiology Results: ITS Impressions Chest X-Ray 09/01/25 21:14 IMPRESSION: No acute pulmonary findings. Head CT 09/02/25 06:42 IMPRESSION: 1. No acute intracranial findings. Chest/Abdomen/Pelvis CT 09/02/25 07:59 IMPRESSION: 1. Right-sided acute pyelonephritis. Brain MRI 09/04/25 12:37 IMPRESSION: 1: Unremarkable MRI of the brain. Labs Labs: Laboratory Results - last 24 hr 09/02/25 09/04/25 00:02 05:57 WBC 9.5 RBC 4.90 Hgb 11.6 L Hct 38.4 MCV 78.4 L MCH 23.7 L MCHC 30.2 L RDW 17.1 H Plt Count 379 H MPV 10.1 Sodium 135 L Potassium 3.4 Chloride 108 H Carbon Dioxide 19 L Anion Gap 8 BUN 8 Creatinine 0.59 L Estim Creat Clear Calc 126 Estimated GFR > 60 Glucose 79 Serum Osmolality 297 H Calcium 8.8 Attestation: I personally reviewed all lab results Quality VTE Prophylaxis VTE prophylaxis: mechanical ordered -Patient's previous records reviewed on admission -ER notes reviewed in detail on admission -discussed all findings and current treatment plan with patient/Family/POA -Consultations reviewed for recommendations -Patient's disposition for safe discharge discussed with director of casework -radiology imaging, EKG and test results I have personally reviewed and interpreted unless otherwise specified Dictation performed by [employer] direct speech recognition software, therefore assistant professor of sociology variants and typographical errors may occur. Hospitalist MIPS Advance Care Plan I have confirmed that the patient's Advanced Care Plan is present, code status is documented, or surrogate decision maker is listed in patient medical record.: Yes Medication Reconciliation I have utilized all available resources to obtain, update and review the patients current medications (includes all prescriptions, OTC, herbals, cannabis, and nutritional supplements).: Yes The patient is not eligible for med reconciliation; the patient is in a emergent medical situation where delaying treatment would jeopardize the patients health.: No
[2025-09-05] VITALS: PULSE 65
[2025-09-05 04:00] VITALS: PULSE 91
[2025-09-05 04:01] VITALS: BP 139/99; PULSE 85; RESP 17; TEMP 36.6; O2SAT 97
[2025-09-05] MEDS: levETIRAcetam 1000MG/NACL100ML 1,000 MG/100 ML BAG 400 MG IVPB (05:35)
--- NOTE | 2025-09-05 08:59 | P.DS_ITS ---
DS: Admitting Diagnosis Discharge Date 09/05/2025 Admitting Diagnosis Seizure/ Fentanyl withdrawal/ arrhythmias/ sepsis/ pyelonephritis DS: Discharge Diagnosis Discharge Diagnosis (1) Sepsis: Code(s): A41.9 - Sepsis, unspecified organism Status: Acute Assessment and Plan: Patient had a temp of 100.4, WBC elevated 12.7, AMS, and tachycardia with possible UTI. Infection vs seizure. Patient seen in ER 07/2025 and had UTI and bacteremia with ECOLI left AMA and never picked up her ABX or treated infection. * Oral Augmentin Q8hr * blood cultures pending * UA pending (2) Pyelonephritis: Code(s): N12 - Tubulo-interstitial nephritis, not specified as acute or chronic Status: Acute Assessment and Plan: CT ABD showing right sided pyelonephritis, UA with no growth but recent ECOLI UTI left untreated 07/2025 with bacteremia * IV fluids * transitioned IV ceftriaxone to Oral Augmentin (3) Polysubstance abuse: Code(s): F19.10 - Other psychoactive substance abuse, uncomplicated Status: Acute Assessment and Plan: Patient admits to Fentanyl use, Positive for Benzo and THC last use one week ago * no Current W/D symptoms * CC provide resources for rehab * encourage immediate cessation (4) Seizure: Code(s): R56.9 - Unspecified convulsions Status: Acute Assessment and Plan: Patient has a hx of seizure 2013, Patient is non-compliant with medication and does not know the name of the medication she was prescribed EEG completed on 09/02-IMPRESSION Abnormal record due to presence of bihemispheric theta and delta activity with intermittent sharp wave component. These findings suggestive of ongoing seizure * Neurology Consulted * Keppra 1000 mg Q8 * Seizure precautions * MR brain with no acute abnormality (5) Arrhythmia: Code(s): I49.9 - Cardiac arrhythmia, unspecified Status: Acute Assessment and Plan: Patient with arrhythmia's with SB to tachy with ambulation. Recent untreated bacteremia ECOLI * tele monitoring * echo pending to ensure no vegetation but low probability with gram negative Plan Code status: Full code per patient DVT prophylaxis: Ambulatory Stress ulcer prophylaxis: NA PT/OT notes: NA Disposition: Patient continues admission to the medical unit for further evaluation and treatment of pyelonephritis, of arrhythmias and seizure activity. Neurology has been consulted and is following MRI pending as well as echocardiogram for patient's arrhythmias. DS: Summary Hospital Course Reason for hospitalization: Seizure/ Fentanyl withdrawal/ arrhythmias/ sepsis/ pyelonephritis/ previously untreated bacteremia Hospital Course: Admission: Patient is a 25 yo F presenting to the ED via EMS being found at a bus stop and confused, reportedly released from senior care today, admitted to drug use, unknown drugs, reportedly recently delivered a child in the recent past, vomiting. Unable to obtain history from pt due to AMS; patient could barely stay awake to answer questions. Patient has a history of seizures but denies being compliant with medication, nor does she knows what medication she takes. Patient reports using substances but does not state what kind. Hospital course: Patient was admitted to the medical unit and placed on seizure precautions with a consult to Neurology. CT abdomen was showing pyelonephritis and appears back in July of 2025 patient had left ER AMA at which time it showed urinary infection of E coli with bacteremia of the coli. the ER physician had sent in a prescription for cefdinir however this would not cover for bacteremia but patient stated she did not pick up operator the prescription. initial findings placed patient with sepsis due to fever, tachycardia, leukocytosis, altered mental status which there were some concern for infection with urinary tract infection which could be from infection versus seizure activity. patient was given a loading dose Keppra and continued on 1000 mg Q 8 IV. when I spoke to patient she reported she did not have a history of seizures unsure patient is not the best historian but stated she was not taking any medications. MRI brain was completed that showed no acute abnormalities however EEG performed Abnormal record due to presence of bihemispheric theta and delta activity with intermittent sharp wave component. These findings suggestive of ongoing seizure. per nursing no other reported seizure activity during her hospitalization while on the IV medication. patient's UA showed no growth however I continue to treat due to pyelonephritis noted on CT scan and untreated previous urinary tract infection of E coli I transition patient from IV ceftriaxone to oral Augmentin per sensitivities which was increased from b.i.d. to t.i.d. to cover for potential bacteremia that was left untreated from July. patient had some arrhythmias during her hospitalization elvis-tachy typically tachycardia with any ambulation or activity but did resolve at rest. I did order an echocardiogram for further evaluation however patient requested to sign herself out AMA. I did have a long discussion the previous day with patient regarding concerns for possible endocarditis due to drug abuse and untreated bacteremia although low due to Gram-negative bacteremia still had some concerns due to patient's arrhythmia. I did state I was then in oral antibiotic for treatment as well as oral Keppra patient was made aware she was at high risk for further seizures and severe infection including sepsis which could lead to . Patient still reported she wanted to sign out AMA I did encourage her to seek out rehab and information was provided from care coordination. Status at Discharge Cognitive/behavioral status at discharge: patient left AMLee Overall status at discharge: other Time Spent with Patient Time attestation: Total time spent providing and/or coordinating discharge services: Exam Narrative: patient left AMA prior to being seen today Cardio: Other: Patient with arrythmias and tachycardia with activity Neuro: Other: Patient states she knows where she is at and what year it is. Patient denies knowing what brought her to the hospital. DS: Data Data Completed and Pending Pending studies at discharge: echocardiogram Labs on day of discharge: Preliminary micro results at discharge 09/02/25 00:02 Blood Culture - Preliminary Blood 09/01/25 19:59 Blood Culture - Preliminary Blood Imaging Radiologist's impression: Radiology Results: ITS Impressions Chest X-Ray 09/01/25 21:14 IMPRESSION: No acute pulmonary findings. Head CT 09/02/25 06:42 IMPRESSION: 1. No acute intracranial findings. Chest/Abdomen/Pelvis CT 09/02/25 07:59 IMPRESSION: 1. Right-sided acute pyelonephritis. Brain MRI 09/04/25 12:37 IMPRESSION: 1: Unremarkable MRI of the brain. Discharge Plan Discharge Attending physician on discharge: Garima Roesnbaum Consulting providers: Ming Cassidy; Troy Bernard; Wong Duggan; Jordana Portillo Discharging Clinician: Jordana Portillo Anticipated Discharge Date/Time: 09/05/25 09:13 Patient Disposition: Left Against Medical Advice Activity: as tolerated Diet: regular Patient Instructions: How to Stop Smoking (ED) Patient Language: Armenian Discharge Medications: New amoxicillin-pot clavulanate 875-125 mg tablet 1 tablet PO Q8H Qty: 12 0RF levetiracetam [Keppra] 750 mg tablet 750 mg PO BID Qty: 60 0RF Continued sertraline [Zoloft] 50 mg Tablet 50 mg PO QAM Qty: 60 1RF Discontinued cefdinir 300 mg capsule 300 mg PO Q12H 10 Days Qty: 20 0RF ibuprofen 600 mg Tablet 600 mg PO Q6H PRN (Reason: Cramping) Qty: 30 0RF No Action No Home Medications Date of admission: 09/03/25 10:24 Primary Care Provider: PHYSICIAN,SENIOR TAX MANAGER Admitting Provider: Dino Kaur Oca Attending physician on admission: Dino Kaur Oca Condition: Unstable Quality VTE Prophylaxis VTE prophylaxis: mechanical ordered -Patient's previous records reviewed on admission -ER notes reviewed in detail on admission -discussed all findings and current treatment plan with patient/Family/POA -Consultations reviewed for recommendations -Patient's disposition for safe discharge discussed with complex case manager -radiology imaging, EKG and test results I have personally reviewed and interpreted unless otherwise specified Dictation performed by [employer] direct speech recognition software, therefore validation software facilitator variants and typographical errors may occur. Hospitalist MIPS Heart Failure (Exclusion) Patient has history of Heart Transplant or Left Ventricular Assistive Device?: No IF YES, STOP HERE Heart Failure (Qualifier) Patient has current or prior documentation of LVEF less than or equal to 40%, or mod/servere depressed LVSF?: No IF NO, STOP HERE
--- NOTE | 2025-09-05 09:07 | PCNEURO ---
Regarding repeat EEG: Nurse informed me that patient is leaving AMA. Let nurse know she could come in outpatient to repeat EEG.
--- NOTE | 2025-09-05 09:55 | PC.NURSE ---
Patient called RN and explained patient wanted to leave against medical advice. RN called provider to discuss patient's status. Educated patient on risks of leaving without completing care. Educated patient on seizures and medications that provider will be calling in to complete. Educated patient on a follow up with a provider. Patient signed AMA paperwork, IV removed.
== END 2025-09-05 10:00 | disposition left against medical advice (07) | DRG 720 ==
LOC: ANHED 09-02 01:34 → ANH3MEDSUR 09-02 02:41
PROVIDERS: Nurse Practitioner; Admitting Provider Student in an Organized Health Care Education/Training Program; Emergency Provider Student in an Organized Health Care Education/Training Program; Visit Provider Nurse Practitioner Family
DX: A41.9 Sepsis, unspecified organism (principal); N12 Tubulo-interstitial nephritis, not specified as acute or chronic; I49.9 Cardiac arrhythmia, unspecified; G40.909 Epilepsy, unspecified, not intractable, without status epilepticus; F91.3 Oppositional defiant disorder; F17.290 Nicotine dependence, other tobacco product, uncomplicated; F19.10 Other psychoactive substance abuse, uncomplicated; Z20.822 Contact with and (suspected) exposure to COVID-19; Z91.148 Patient's other noncompliance with medication regimen for other reason
CPT/HCPCS: 36415; 70450; 70553; 71045; 71260; 74177; 80048; 80053; 80143; 80179; 80307; 81001; 81025; 82010; 82077; 82140; 82550; 82803; 82948; 83605; 83690; 83735; 83930; 84100; 84145; 84439; 84443; 84480; 84484; 84703; 85025; 85027; 85610; 85730; 86140; 87040; 87086; 87637; 92523; 93005; 95816; 96361; 96365; 96367; 96374; 96375; 96376; 99285; A9270; A9577; G0378; G0379; J0696; J1953; J2405; J3411; J7030; Q9967